=== PATIENT | female | born 1940 | race Caucasian/White ===

== ENCOUNTER 2018-01-30 15:35 | Emergency (ER) | payer MEDICARE, OTHER, SELFPAY ==
[2018-01-30 15:36] VITALS: BP 184/97; PULSE 86; RESP 15; TEMP 36.8; O2SAT 99; BMI 29.1
--- NOTE | 2018-01-30 15:55 | ED.VISSUMM ---
- ER Visit Summary Date of Service: 01/30/18 Chief Complaint: Back pain History of Present Illness: The patient is a 77 F who presents with left thoracic back pain that has been getting worse over the past 2 days. Patient describes the pain as sharp. Patient states the pain is worse when she lays flat. Patient denies any trauma or injury. Patient denies any radiation of the pain. Patient denies any paresthesias or weakness. Patient was seen at an urgent care prior to arrival here. Patient had a urinalysis done there which was normal. Patient was referred here because they were unable to do x-rays at the urgent care. Physical Examination: Vital signs are stable except for an elevated blood pressure of 184/97. Patient is in no acute distress. Patient is afebrile. Oral mucosa is pink and moist. Neck is supple. Trachea is midline. There is no JVD noted. Heart was regular rate and rhythm. Lungs are clear and equal bilaterally. There is good respiratory effort noted. Radial pulses are equal bilaterally. Abdomen is soft. Bowel sounds are normal. There is no tenderness. Cranial nerves II through XII are intact. There are no focal motor or sensory deficits noted. The remaining physical exam is within normal limits. Test Results: X-rays of the left ribs and chest were obtained. There is no acute process noted. Emergency Department Course and Treatment: She was given a dose of Naprosyn here. Patient felt better on reevaluation. Patient's blood pressure has improved. Patient was instructed to take Aleve or ibuprofen as needed for pain. Patient was instructed to follow-up with her primary care physician in 7-10 days. Patient understood and was agreeable with the plan. All questions were answered. Disposition: Discharged home Impression: Thoracic strain This note was generated with [employer] dictation software. It may contain incorrect words, spelling, and punctuation that were not noted in review of the chart prior to signing ED Disposition - Plan for ED Patient: Disposition: Home or Assisted Living Chief Complaint: Back Diagnosis: Thoracic myofascial strain Instructions: ED Strain Chest Wall Referrals: Gurjit Burgos MD [NON-STAFF] -
[2018-01-30] MEDS: Naproxen 500 MG Tablet PO (16:03)
--- NOTE | 2018-01-30 16:05 | RAD_ITS ---
STUDY: X-RAY - UNILATERAL RIBS ( LEFT ) WITH CHEST REASON FOR EXAM: Female, 77 years old. LEFT POSTERIOR PAIN, NO INJURY TECHNIQUE - RIBS: 3 view(s) of the ribs. TECHNIQUE - CHEST: Single AP portable view of the chest. COMPARISON: None. FINDINGS - RIBS: Normal visualized ribs without a demonstrated fracture. FINDINGS - CHEST: Calcified nodule of the upper lobes. There is no demonstrated pleural abnormality. Normal size heart. Normal mediastinum and gretchen. Normal visualized pulmonary arteries. Normal visualized aortic arch and descending thoracic aorta. Normal visualized thoracic spine. Normal visualized ribs, clavicles, and shoulders. There is no demonstrated abnormality of the visualized soft tissue structures of the upper abdomen. RAD/Ribs Uni Min 3V w/PA Chest IMPRESSION: RIBS: Normal x-ray examination of the ribs. CHEST: Normal x-ray examination of the chest. Electronically Signed: Mario Wan MD at 16:46 EDT , Service support ,
== END 2018-01-30 17:39 | disposition home or self-care (01) ==
PROVIDERS: Emergency Provider Emergency Medicine; Family Provider Family Medicine; PCP Family Medicine
DX: S29.012A Strain of muscle and tendon of back wall of thorax, initial encounter (principal); X58.XXXA Exposure to other specified factors, initial encounter; Y93.9 Activity, unspecified; Y92.89 Other specified places as the place of occurrence of the external cause; Y99.9 Unspecified external cause status; I10 Essential (primary) hypertension; H40.9 Unspecified glaucoma
CPT/HCPCS: 71101; 99282

== ENCOUNTER 2020-10-07 09:14 | Emergency (ER) | payer MEDICARE, OTHER, SELFPAY ==
[2020-10-07 09:16] VITALS: BP 128/73; PULSE 82; RESP 16; TEMP 36.3; O2SAT 95; BMI 25.0
--- NOTE | 2020-10-07 09:25 | CT_ITS ---
STUDY: CT ABDOMEN AND PELVIS WITH CONTRAST REASON FOR EXAM: Female, 79 years old. ABDOMINAL PAIN RADIATION DOSAGE (If Supplied By Facility): CTDIvol = ( 14.09 ) mGy, DLP = ( 845.01 ) mGycm TECHNIQUE: Transaxial images were obtained from the dome of the diaphragm to the symphysis pubis without oral contrast. IV 100mL [id number]-300 was administered. Sagittal and coronal images were reconstructed. Individualized dose optimization techniques were used for this CT. COMPARISON: None. FINDINGS: The visualized lung bases are unremarkable. The visualized portions of the heart are within normal limits. Right hepatic dome hypodense lesion is too small to characterize. Normal gallbladder and extrahepatic biliary system. Normal spleen. Normal pancreas. Normal bilateral adrenal glands. There is a right extrarenal pelvis and 4 mm nonobstructing stone in the lower pole. Left renal upper pole 2 x 1.8 cm hyperdense lesion, this may represent hemorrhagic or proteinaceous cyst. Left renal midpole simple cyst. Normal visualized stomach. There is mild distal small bowel wall thickening and mucosal hyperemia. The descending and sigmoid colon with marked diverticulosis without evidence of acute diverticulitis. There is mild colonic wall thickening of the ascending and transverse colon. No bowel obstruction. The appendix is visualized and appears normal. Moderate aortobiiliac atherosclerotic disease. Normal inferior vena cava. Normal retroperitoneum. Normal urinary bladder. Normal abdominal wall. Grade 1 anterolisthesis of L4 on L5. T10 and L3 vertebral body hemangioma. CT/Abdomen/Pelvis W IV Cont ONLY IMPRESSION: There is mild distal small bowel wall thickening and mucosal hyperemia, mild wall thickening of the ascending and transverse colon-findings are in keeping with enterocolitis if clinically consistent. No obstruction. Left renal upper pole 2 x 1.8 cm hyperdense lesion, this may represent hemorrhagic or proteinaceous cyst. No follow-up necessary. Electronically Signed: Shy Denise MD at 11:40 EDT Tel , Service support ,
--- NOTE | 2020-10-07 09:26 | EDS_ITS ---
HPI History of Present Illness Chief Complaint: Abd Pain Informant: patient Narrative Narrative: 79-year-old female states that last Wednesday she was at the car [place] and was hit by a door and fell to the floor. She got up and felt she was okay. However when she got home that night she had diarrhea which persisted into Wednesday. Since Wednesday she has had anorexia and lower abdominal pain. She describes it as a constant pain. She denies any urinary symptoms. She said very small bowel movements. No fevers. No radiation of the pain to the back. No lightheadedness. She has been able to drink fluids. She states that she has had increased belching. She called her doctor's office and they prescribed her Prilosec. No back pain. No chest pain. [facility] Medical History (Updated 10/07/20 @ 12:[address] Almas Polanco DO) Glaucoma Hypertension Home Medications aspirin 81 mg PO DAILY 01/30/18 [History Last Taken Unknown] amoxicillin-pot clavulanate 875 mg PO Q12H #20 tablet 10/07/20 [Rx Last Taken Unknown] losartan-hydrochlorothiazide 1 tab PO DAILY 10/07/20 [History Last Taken Unknown] lutein 20 mg PO DAILY 10/07/20 [History Last Taken Unknown] omeprazole 20 mg PO DAILY 10/07/20 [History Last Taken Unknown] ondansetron 4 mg PO Q8H PRN PRN #15 tab 10/07/20 [Rx Last Taken Unknown] Allergy/AdvReac Type Severity Reaction Status Date / Time No Known Allergies Allergy Verified 10/07/20 09:17 no surgical history Social History (Updated 10/07/20 @ 09:[address] Almas Polanco DO) Smoking Status: Never smoker substance use type: does not use ROS ROS ED Constitutional Constitutional ED: Denies chills or weight loss Eyes Eyes: Denies change in vision or diplopia ENT ENT ED: Denies ear pain, rhinorrhea or sore throat Cardiovascular Cardiovascular: Denies chest pain, orthopnea, palpitations or racing heartbeat Respiratory/Chest Respiratory/Chest: Denies cough, dyspnea or orthopnea Gastrointestinal Gastrointestinal: Reports abdominal pain, diarrhea and nausea; Denies vomiting Genitourinary Genitourinary ED: Denies dysuria, hematuria or urinary frequency Musculoskeletal Musculoskeletal: Denies arthralgias or myalgias Integumentary Denies abscess or rash Neurologic Neurologic: Denies headache(s) or weakness Psychiatric Psychiatric: Denies anxiety, depression, suicidal ideation or suicidal thoughts Endocrine Endocrinology: Denies polydipsia, polyphagia or polyuria Allergic/Immunologic Allergic/Immunologic ED: Denies mouth swelling, tongue swelling or urticaria EXAM Physical Exam Const Vital Signs: 10/07/20 09:16 Temperature 97.3 F L Temperature Source Temporal Pulse Rate 82 Respiratory Rate 16 Blood Pressure 128/73 H Blood Pressure Mean 91 Pulse Ox 95 Oxygen Delivery Method Room Air Positive well nourished and well developed General Appearance ED: well developed HEENT Reports normocephalic, head/scalp atraumatic and moist mucous membranes Eyes PERRL and EOMs intact bilaterally Neck no lymphadenopathy, supple and no JVD Resp normal respiratory effort and clear to auscultation bilaterally Cardio regular rate, regular rhythm and no murmurs GI non-tender GI Narrative: Patient reports diffuse tenderness to palpation. Auscultation: normoactive bowel sounds Palpation: soft and tender Back/Spine no CVA tenderness and normal ROM Extremity normal to inspection General Extremety ED: Negative for edema General Extremity: Negative for edema Neuro oriented x3 and CN's II-XII intact bilaterally Sensorium / Orientation: alert Motor Exam: strength 5/5 throughout Psych mental status grossly normal Mood & Affect: Negative for depressed or tearful Skin no rashes or lesions noted and no wounds MDM MDM MDM Narrative Medical decision making narrative: Patient's white count is nonspecifically elevated at 12.9. CMP shows a creatinine 1.45 with a glucose of 111. Urinalysis is negative. CT of the abdomen pelvis was obtained. This demonstrated some small bowel wall thickening and mucosal hyperemia. There is also some mild wall thickening of the ascending and transverse colon. This could represent enterocolitis the patient's diarrhea stopped 5 days ago. She has got extensive diverticulosis. I do wonder if this is more of a colitis that we should treat with some antibiotics. We will write for her to have Augmentin and Zofran. I requested she follow-up with primary care if not improving return if worsening. Lab Data Attestation: I reviewed the patient's lab results. Labs: Laboratory Results - last 24 hr 10/07/20 10/07/20 10/07/20 09:39 09:39 10:11 WBC 12.9 H RBC 3.91 L Hgb 11.8 L Hct 35.7 L MCV 91.3 MCH 30.2 MCHC 33.1 RDW Std Deviation 42.8 RDW Coeff of Aracely 12.8 Plt Count 367 MPV 8.7 Immature Gran % (Auto) 2.200 H Neut % (Auto) 70.8 H Lymph % (Auto) 13.6 L [place] % (Auto) 12.2 H Eos % (Auto) 0.7 Baso % (Auto) 0.5 Absolute Neuts (auto) 9.1 H Absolute Lymphs (auto) 1.76 Nucleated RBC % 0 Differential Comment Platelet Estimate ADEQUATE RBC Morphology NORM C+C Sodium 136 Potassium 3.7 Chloride 100 Carbon Dioxide 26.0 Anion Gap 10 BUN 23 H Creatinine 1.45 H Estim Creat Clear Calc 24.07 Est GFR (MDRD) Af Amer 45 L Est GFR (MDRD) Non-Af 37 L BUN/Creatinine Ratio 15.9 Glucose 111 H Calcium 8.9 Total Bilirubin 0.80 AST 18 ALT 18 Alkaline Phosphatase 109 Total Protein 7.3 Albumin 3.1 L Globulin 4.2 Albumin/Globulin Ratio 0.7 L Lipase 422 H Urine Color Yellow Urine Clarity Sl. Cloudy Urine pH 6.0 Ur Specific Tillson 1.010 Urine Protein Negative Urine Glucose (UA) Normal Urine Ketones 5 H Urine Occult Blood Negative Urine Nitrite Negative Urine Bilirubin Negative Urine Urobilinogen Normal Ur Leukocyte Esterase 25 H Urine RBC 0 SEEN Urine WBC 0-5 SEEN Ur Squamous Epith Cells 0-5 SEEN Urine Bacteria 0 SEEN Urine Mucus 0 SEEN Radiography Diagnostic Testing: Radiology Impression Abdomen/Pelvis CT 10/07/20 09:25 IMPRESSION: There is mild distal small bowel wall thickening and mucosal hyperemia, mild wall thickening of the ascending and transverse colon-findings are in keeping with enterocolitis if clinically consistent. No obstruction. Left renal upper pole 2 x 1.8 cm hyperdense lesion, this may represent hemorrhagic or proteinaceous cyst. No follow-up necessary. Electronically Signed: Shy Denise MD at 11:40 EDT Tel , Service support , Discharge Plan Triage Chief Complaint: Abd Pain ED Provider: Almas Polanco Dx/Rx/DC Orders Clinical Impression: Acute abdominal pain, Colitis Prescriptions: New ondansetron [ondansetron] 4 MG tablet 4 mg PO Q8H PRN PRN (Reason: Nausea) Qty: 15 RF: 0 amoxicillin-pot clavulanate [amoxicillin-pot clavulanate] 875 MG tablet 875 mg PO Q12H Qty: 20 RF: 0 No Action aspirin 81 MG tablet,delayed release (DR/EC) 81 mg PO DAILY RF: 0 lutein 20 mg Capsule 20 mg PO DAILY RF: 0 losartan-hydrochlorothiazide 100-12.5 mg Tablet 1 tab PO DAILY RF: 0 omeprazole 20 mg Capsule,Delayed Release(Dr/Ec) 20 mg PO DAILY RF: 0 Primary Care Provider: Je Jorge Referrals: Je Jorge MD [Primary Care Provider] - 1 Week Disposition Disposition: Home, self care
[2020-10-07 09:48] LABS: Absolute Lymphocyte Count 1.76 X10^3/uL (0.83-4.51); Absolute Neutrophil Count 9.1 X10^3/uL (2.0-7.7); Basophil# 0.06 X10^3/uL; Basophil% 0.5 % (0-1); Eosinophil# 0.09 X10^3/uL; Eosinophils% 0.7 % (0-5); Hematocrit 35.7 % (37-47); Hemoglobin 11.8 g/dL (12.0-15.0); Lymphocyte # 1.76 X10^3/ul (0.83-4.51); Lymphocyte % 13.6 % (19-41); Mean Corp Hgb Conc 33.1 g/dL (32-36); Mean Corpuscular Hgb 30.2 pg (27.0-32.0); Mean Corpuscular Volume 91.3 fL (81-99); Mean Platelet Vol. 8.7 fl (6.2-12.0); Monocyte# 1.58 X10^3/uL; Monocyte% 12.2 % (0-10); NRBC Flagged by Analyzer 0 % (0-5); Neutrophil # 9.13 X10^3/uL (2.7-7.7); Neutrophil % 70.8 % (47-70); POSITIVE DIFFERENTIAL YES; POSITIVE MORPHOLOGY YES; Platelet Count 367 K/mm3 (150-450); RBC Distribution Width CV 12.8 % (11.6-14.6); RBC Distribution Width SD 42.8 fl (35.1-43.9); Red Blood Count 3.91 M/mm3 (4.2-5.4); White Blood Count 12.9 K/mm3 (4.4-11.0)
[2020-10-07] MEDS: Morphine 2 MG/ML Syringe IV (09:48)
[2020-10-07 09:49] LABS: Differential Indicated SCAN CRITERIA MET
[2020-10-07] MEDS: Ondansetron 4 MG/2 ML Vial IV (09:49)
[2020-10-07 10:14] LABS: ALB/GLOB Ratio 0.7 RATIO (0.9-2.4); AST(SGOT) 18 U/L (15-37); Alanine Aminotransfer ALT/SGPT 18 U/L (13-56); Albumin, Serum 3.1 g/dL (3.2-5.0); Alkaline Phosphatase 109 U/L (45-117); Anion Gap 10 (5-15); BUN 23 mg/dL (7-18); BUN/Creat Ratio 15.9 RATIO (10-20); Calcium,Total 8.9 mg/dL (8.5-10.1); Chloride 100 mmol/L (98-107); Creatinine, Serum 1.45 mg/dL (0.55-1.02); EST Glomerular Filtration Rate 37 mL/min (>60); Est Glom Filt Rate - Afr Amer 45 mL/min (>60); Estimated Creatinine Clearance 24.07 ml/min; Globulin 4.2 g/dL (2.2-4.2); Glucose 111 mg/dL (74-106); Lipase 422 U/L (73-393); Potassium 3.7 mmol/L (3.5-5.1); Protein, Total 7.3 g/dL (6.4-8.2); Sodium Level 136 mmol/L (136-145)
[2020-10-07 10:16] LABS: Bacteria 0 SEEN /hpf (None Seen); Mucous, Urine 0 SEEN /hpf (<or=2+); Red Blood Cells-Urine 0 SEEN /hpf (0-5)
[2020-10-07 10:21] LABS: Color, Urine Yellow (Yellow); Glucose, Dipstick Normal (Normal); Ketone-Dipstick 5 mg/dl (Negative); Leukocyte Esterase-Dipstick 25 /ul (Negative); Nitrite-Dipstick Negative (Negative); Occult Blood-Urine Negative /ul (Negative); Protein-Dipstick Negative (Negative); Urine Bilirubin Dipstick Negative (Negative); Urine Clarity Sl. Cloudy (Clear); Urine Urobilinogen Normal (Normal)
[2020-10-07 10:31] LABS: Squamous Epithelial Cells - UA 0-5 SEEN /hpf (5-10); White Blood Cells 0-5 SEEN /hpf (0-5)
[2020-10-07] MEDS: 0.9% Normal Saline 1,000 ML 125 ML IV (10:31)
[2020-10-07 11:10] LABS: Platelet Estimate ADEQUATE (ADEQ); Red Cell Morphology NORM C+C NORMAL (NORM C&C)
[2020-10-07 12:13] VITALS: BP 128/73; PULSE 86; RESP 16; O2SAT 96
[2020-10-08 11:54] LABS: Pathologist Review Reviewed
== END 2020-10-07 12:16 | disposition home or self-care (01) ==
PROVIDERS: Emergency Provider Emergency Medicine; PCP Family Medicine
DX: K52.9 Noninfective gastroenteritis and colitis, unspecified (principal); I10 Essential (primary) hypertension; H40.9 Unspecified glaucoma; Z79.82 Long term (current) use of aspirin; Z79.899 Other long term (current) drug therapy
CPT/HCPCS: 74177; 80053; 81001; 83690; 85025; 96361; 96374; 96375; 99283; J7030; Q9967; A4216; J2405

== ENCOUNTER 2022-07-24 11:00 | Emergency (ER) | payer MEDICARE, OTHER, SELFPAY ==
[2022-07-24 11:01] VITALS: BP 165/96; PULSE 95; RESP 18; TEMP 36.6; O2SAT 100; BMI 25.4
--- NOTE | 2022-07-24 11:22 | EX.ED.DYSGE1 ---
HPI History of Present Illness Chief Complaint: Dizziness Detail of Chief Complaint: Dizziness x1 week Informant: patient Narrative Narrative: Patient presents to the emergency department with complaint of dizziness that started about a week ago. Patient states that then it resolved for several days but started back up yesterday. Worse with certain positions of turning her head. She denies nausea or vomiting. She denies headache. She denies fall or head injury. She denies recent illness. Patient was told she had wax in her ears and she scheduled to follow-up with ENT. Patient does wear bilateral hearing aids. She denies chest pain or shortness of breath. Patient has not had dizzy episodes like this before. [facility] Medical History (Updated 07/24/22 @ 12:[address] Francy Pacheco DO) Glaucoma Hypertension Home Medications aspirin 81 mg tablet,delayed release 81 mg PO DAILY 01/30/18 [History Last Taken Unknown] amoxicillin 875 mg-potassium clavulanate 125 mg tablet 875 mg PO Q12H #20 TABLETS 10/07/20 [Rx Last Taken Unknown] losartan 100 mg-hydrochlorothiazide 12.5 mg tablet 1 tab PO DAILY 10/07/20 [History Last Taken Unknown] lutein 20 mg capsule 20 mg PO DAILY 10/07/20 [History Last Taken Unknown] omeprazole 20 mg capsule,delayed release 20 mg PO DAILY 10/07/20 [History Last Taken Unknown] ondansetron 4 mg disintegrating tablet 4 mg PO Q8H PRN PRN Nausea #15 tabs 10/07/20 [Rx Last Taken Unknown] meclizine 25 mg chewable tablet (Bonine) 25 mg PO TID PRN dizziness #20 tabs 07/24/22 [Rx Last Taken Unknown] Allergy/AdvReac Type Severity Reaction Status Date / Time No Known Allergies Allergy Verified 07/24/22 11:02 Social History (Updated 10/07/20 @ 09:[address] Almas Polanco DO) Smoking Status: Never smoker substance use type: does not use ROS ROS ED Review of Systems ROS Unobtainable: other Constitutional Constitutional ED: Reports lethargy; Denies chills, fever(s), sweats or weight loss Eyes Eyes: Denies blurry vision, change in vision or diplopia ENT ENT ED: Denies rhinorrhea or sore throat Cardiovascular Cardiovascular: Reports chest pain and racing heartbeat; Denies orthopnea Respiratory/Chest Respiratory/Chest: Reports dyspnea and dyspnea on exertion; Denies cough, orthopnea or sputum Gastrointestinal Gastrointestinal: Denies abdominal pain, diarrhea, nausea or vomiting Genitourinary Genitourinary ED: Denies dysuria, hematuria or urinary frequency Musculoskeletal Musculoskeletal: Denies arthralgias, back pain, myalgias or neck pain Integumentary Denies abscess, Abrasions or rash Neurologic Neurologic: Reports other Details: Dizziness ; Denies headache(s) or weakness Psychiatric Psychiatric: Denies anxiety, depression or suicidal thoughts Endocrine Endocrinology: Denies polydipsia, polyphagia or polyuria Hematologic/Lymphatic Hematologic/Lymphatic: Denies easy bleeding, easy bruising or lymphadenopathy Allergic/Immunologic Allergic/Immunologic ED: Denies mouth swelling, tongue swelling or urticaria EXAM Physical Exam Const Vital Signs: 07/24/22 11:01 07/24/22 11:09 Temperature 98 F Temperature Source Temporal Pulse Rate 95 Respiratory Rate 18 Respiratory Effort Normal Non-Labored Respiratory Pattern Normal Blood Pressure 165/96 H Blood Pressure Mean 119 Pulse Ox 100 Oxygen Delivery Method Room Air Positive well nourished and well developed General Appearance ED: well developed and NAD HEENT Reports TM's clear and moist mucous membranes normocephalic and atraumatic; Negative for trauma or tenderness Tympanic Membrane ED: Yes TM's clear Eyes PERRL and EOMs intact bilaterally General Eye ED: Negative for pale conjunctiva or scleral icterus Neck no lymphadenopathy, supple and no JVD General: Negative for tenderness Chest Wall inspection of chest normal and palpation of chest normal Chest: Negative for tenderness Resp normal respiratory effort and clear to auscultation bilaterally Effort and Inspection: Negative for respiratory distress or pain with movement Auscultation: Negative for rhonchi, wheezes or diminished lung sounds Cardio regular rate, regular rhythm, S1 normal heart sound, S2 normal heart sound and no murmurs Peripheral Pulses: pulses 2+ throughout GI normal to inspection, nondistended, normoactive bowel sounds, soft to palpation, non-tender, non-distended and no masses Back/Spine no CVA tenderness and no thoracic nor lumbar tenderness Extremity normal to inspection General Extremety ED: Negative for edema General Extremity: Negative for edema Neuro oriented x3, CN's II-XII intact bilaterally, no sensory deficits noted and gait normal Neuro Narrative: Finger-nose and heel donnelly testing within normal limits, negative Romberg, negative for drift, fundi benign. I did perform the Hallpike maneuver on the patient and she was positive with her head turned to the right she had fatigable nystagmus. No nystagmus noted with a head turn to the left. Clinically I think she has peripheral vertigo. We discussed doing the Alan maneuver versus using medication to treat such as Antivert. Patient was told that if we did the Alan maneuver she could lay flat for a few days and she would prefer to just use the medications to try to treat. Sensorium / Orientation: awake, alert, oriented to person, oriented to place and oriented to time Motor Exam: strength 5/5 throughout and strength abnormal Psych mental status grossly normal Skin no rashes or lesions noted and no wounds MDM MDM MDM Narrative Medical decision making narrative: Patient with peripheral vertigo. Will treat with Antivert. Patient felt markedly improved after Antivert. Clinically I suspect benign positional vertigo. She has an appointment with ENT in 3 days she is to keep that. I will write her a prescription for Antivert. Discharged home stable condition. Discharge Plan Triage Chief Complaint: Dizziness ED Provider: Francy Pacheco Dx/Rx/DC Orders Clinical Impression: Benign paroxysmal positional vertigo Instructions: BPPV Prescriptions: New meclizine [Bonine] 25 mg tablet,chewable 25 mg PO TID PRN (Reason: dizziness) Qty: 20 0RF No Action aspirin 81 MG tablet,delayed release (DR/EC) 81 mg PO DAILY lutein 20 mg Capsule 20 mg PO DAILY losartan-hydrochlorothiazide 100-12.5 mg Tablet 1 tab PO DAILY omeprazole 20 mg Capsule,Delayed Release(Dr/Ec) 20 mg PO DAILY ondansetron [ondansetron] 4 MG tablet 4 mg PO Q8H PRN PRN (Reason: Nausea) Qty: 15 0RF amoxicillin-pot clavulanate [amoxicillin-pot clavulanate] 875 MG tablet 875 mg PO Q12H Qty: 20 0RF Primary Care Provider: Je Jorge Referrals: Je Jorge MD [Primary Care Provider] - 3-5 Days Activity Restrictions/Additional Instructions: Keep appointment with ear nose and throat physician and discuss further if symptoms persist. Disposition Disposition: Home, Self Care
[2022-07-24] MEDS: Meclizine HCl 25 MG Tablet PO (11:28)
[2022-07-24 12:46] VITALS: BP 144/89; PULSE 83; RESP 17; O2SAT 98
== END 2022-07-24 12:47 | disposition home or self-care (01) ==
PROVIDERS: Emergency Provider Emergency Medicine; PCP Family Medicine; Visit Provider Emergency Medicine
DX: R42 Dizziness and giddiness (principal); I10 Essential (primary) hypertension
CPT/HCPCS: 99283

== ENCOUNTER 2024-02-12 08:55 | Emergency (ER) | payer MEDICARE, OTHER, SELFPAY ==
[2024-02-12 08:56] VITALS: BP 181/115; PULSE 78; RESP 18; TEMP 36.6; O2SAT 100; BMI 24.2
--- NOTE | 2024-02-12 09:18 | CT_ITS ---
STUDY: CT ABDOMEN AND PELVIS WITHOUT CONTRAST REASON FOR EXAM: Female, 83 years old. Pain RADIATION DOSAGE (If Supplied By Facility): CTDIvol = ( 6.25 ) mGy, DLP = ( 392.39 ) mGycm TECHNIQUE: Transaxial images were obtained from the dome of the diaphragm to the symphysis pubis without oral contrast, and without intravenous contrast. Sagittal and coronal images were reconstructed. Individualized dose optimization techniques were used for this CT. COMPARISON: October 07, 2020 FINDINGS: There is lower lung scarring or atelectasis. The visualized portions of the heart are within normal limits. Normal liver. Normal gallbladder and extrahepatic biliary system. Normal spleen. Normal pancreas. Normal bilateral adrenal glands. There is stable 0.7 cm stone in the right kidney. There is stable mild hydronephrosis. There is 1.1 cm hyperdense cyst of the upper pole the right kidney. There is 2.3 cm cyst and 1.2 cm hyperdense cyst of the left kidney. Normal visualized stomach. Normal small intestine. There are multiple colonic diverticula consistent with diverticulosis. The appendix is visualized and appears normal. There is atherosclerotic calcification of the abdominal aorta, without a demonstrated aneurysm. Normal inferior vena cava. Normal retroperitoneum. Normal urinary bladder. There is atrophy of the uterus. There is no free fluid in the abdomen or pelvis. Normal abdominal wall. There is degenerative change of the spine. CT/Abdomen/Pelvis without Cont IMPRESSION: Colonic diverticulosis. No obstruction. Stable right renal stone and right hydronephrosis. Electronically Signed: Ronald Van MD at 11:05 EDT ,
--- NOTE | 2024-02-12 09:19 | EDS_ITS ---
HPI HPI - GI History of Present Illness Chief Complaint: Flank Pain Detail of Chief Complaint: Atraumatic right flank pain since last evening. Informant: patient Abdominal Pain/Flank Pain Onset: Yesterday Context: Gradual Onset Timing: Continuous Location: Right Flank Current Severity: Mild Maximum Severity: Mild Worsened by: Nothing Relieved by: Nothing Nausea/Vomiting/Emesis GI Symptom: Negative for Nausea or Vomiting Diarrhea/Melena/Hematochezia GI Symptom: Negative for Diarrhea, Melena or Hematochezia Associated Symptoms Associated Symptoms: Negative for Dysuria, Frequency, Hematuria or Urgency Narrative Narrative: 83-year-old female history of glaucoma and hypertension. Complaining of right flank pain since last evening. Denies any fall injury or trauma. Denies any hematuria or dysuria. No history of kidney stone. Said it just started hurting. Nothing particularly makes it better or worse. Denies any abdominal pain or other symptoms. Prior similar symptoms: No Recent Illness/Hospitalization: No PFSH PFSH Medical History Glaucoma Hypertension Home Medications ?Medication ?Instructions ?Recorded ?Last Taken ?Type aspirin 81 mg tablet,delayed 81 mg PO DAILY 01/30/18 Unknown History release amoxicillin 875 mg-potassium 875 mg PO Q12H #20 TABLETS 10/07/20 Unknown Rx clavulanate 125 mg tablet losartan 100 1 tab PO DAILY 10/07/20 Unknown History mg-hydrochlorothiazide 12.5 mg tablet lutein 20 mg capsule 20 mg PO DAILY 10/07/20 Unknown History omeprazole 20 mg capsule,delayed 20 mg PO DAILY 10/07/20 Unknown History release ondansetron 4 mg disintegrating 4 mg PO Q8H PRN PRN Nausea #15 tabs 10/07/20 Unknown Rx tablet meclizine 25 mg chewable tablet 25 mg PO TID PRN dizziness #20 tabs 07/24/22 Unknown Rx (Bonine) tramadol 50 mg tablet 50 mg PO Q6H PRN pain #14 tabs 02/12/24 Unknown Rx tramadol 50 mg tablet 50 mg PO Q6H PRN pain #14 tabs 02/12/24 Unknown Rx Allergy/AdvReac Type Severity Reaction Status Date / Time No Known Allergies Allergy Verified 02/12/24 08:56 Social History Smoking Status: Never smoker substance use type: does not use ROS ROS ED ROS Narrative Atraumatic right flank pain. Constitutional Constitutional ED: Denies chills or fever(s) ENT ENT ED: Denies ear pain Cardiovascular Cardiovascular: Denies chest pain Respiratory/Chest Respiratory/Chest: Denies cough Gastrointestinal Gastrointestinal: Denies abdominal pain Genitourinary Genitourinary ED: Denies dysuria or hematuria Musculoskeletal Musculoskeletal: Reports back pain; Denies arthralgias Integumentary Denies abscess Neurologic Neurologic: Denies headache(s) Psychiatric Psychiatric: Denies anxiety Endocrine Endocrinology: Denies polydipsia Hematologic/Lymphatic Hematologic/Lymphatic: Denies easy bleeding Allergic/Immunologic Allergic/Immunologic ED: Denies mouth swelling EXAM Physical Exam Narrative Exam Narrative: Well-appearing 83-year-old female. Vital signs are stable afebrile. Initial blood pressure is elevated. No acute distress. H EENT exam unremarkable. Pupils round reactive light. Neck nontender. Lungs clear. Heart regular rhythm rate about 80 no murmur. Chest wall and ribs nontender. Abdomen soft nontender. No peritoneal signs. No pulsatile mass. Moving all 4 extremities. Nontender no edema. Normal strength. Back her pain is at her right CVA region. There is no discoloration or rash. There is no signs of trauma or bruising. There is no reproducible pain. Palpation at that area does not change the pain make it any better or worse. Neurologically she is awake and alert with no focal motor deficits. Const Vital Signs: 02/12/24 08:56 02/12/24 11:35 Temperature 97.9 F 97.2 F L Temperature Source Oral Oral Pulse Rate 78 81 Respiratory Rate 18 16 Blood Pressure 181/115 H 127/88 H Blood Pressure Mean 137 101 Pulse Ox 100 97 Oxygen Delivery Method Room Air Positive well nourished and well developed; Negative for obese, cachectic, contractures or unkempt General Appearance ED: well developed and NAD; Negative for unkempt, cachectic, contractures or pallor Nutritional Appearance: Negative for cachectic or obese HEENT Reports moist mucous membranes normocephalic and atraumatic; Negative for trauma or tenderness Eyes PERRL and EOMs intact bilaterally General Eye ED: Negative for pale conjunctiva or scleral icterus Neck no lymphadenopathy, supple and no JVD General: Negative for tenderness Lymph Lymphatic: Negative for other Resp normal respiratory effort and clear to auscultation bilaterally Auscultation: Negative for rales, rhonchi or wheezes Cardio regular rate, regular rhythm, S1 normal heart sound, S2 normal heart sound and no murmurs GI non-tender, non-distended and no masses Inspection: Negative for abdominal distention Auscultation: normoactive bowel sounds Palpation: soft; Negative for tender, guarding, hernia, mass, pulsatile mass or rebound tenderness present Back/Spine no CVA tenderness General Back: Negative for CVA tenderness Cervical Spine: Negative for cervical spine tenderness Thoracic Spine / Upper Back: Negative for thoracic spinal tenderness Lumbar Spine / Lower Back: Negative for lumbar spinal tenderness Coccyx: Negative for other Extremity Negative for full ROM General Extremety ED: Negative for edema or tenderness General Extremity: Negative for edema Neuro CN's II-XII intact bilaterally and moves all extremities Sensorium / Orientation: alert, oriented to person, oriented to place and oriented to time; Negative for orientation impaired Motor Exam: strength 5/5 throughout Psych mental status grossly normal and thought process normal Appearance: Negative for unkempt Attitude: No agitated Mood & Affect: Negative for depressed, anxious or tearful Skin no wounds General Skin Exam: Negative for jaundice or pallor Lesions: no lesions Rashes: no rashes Trauma: Negative for abrasion Nails: Negative for discolored MDM MDM MDM Narrative Medical decision making narrative: 83-year-old female with atraumatic right flank pain. No reproducible pain does not seem to be musculoskeletal could be a kidney stone. She is not having urinary symptoms with urinary tract infection is a possibility. CAT scan labs are pending. She did not want or need anything for pain. Repeat exam unchanged. Patient doing well at 1:10 PM. Explained him that we were waiting for the CAT scan read and also I did speak to the radiologist about the CAT scan findings. This appears to be secondary to dilatation of her right kidney or hydronephrosis. The question is why. There may be a stricture. I do not see an acute stone. She be given Ultram for pain and discharged to follow- up with urology. They are comfortable with the plan. History & Record Review Discussion w/independent historian: Patient and Family Additional record(s) reviewed:: Prior inpatient record, Prior outpatient record, Prior ED visit and Prior labs Lab Data Attestation: I reviewed the patient's lab results. Lab results narrative: CBC shows a white count of 9. H&H 12 and 36. Platelets 347. Electrolytes show sodium 133. Gap 4. BUN and creatinine of 27 1.28. Glucose 115. These are consistent with prior labs of hers. UA negative. No nitrates. No white or red cells. 1+ bacteria. CAT scan shows a right renal stone in the kidney. Dilated renal pelvis and proximal ureter felt to be secondary to a stricture. No stone seen causing this. I discussed this with the radiologist. He stated that he saw this on a prior CAT scan from several years ago also. This is probably chronic. Labs: Laboratory Results - last 24 hr 02/12/24 02/12/24 09:20 10:15 WBC 9.8 RBC 3.93 L Hgb 12.1 Hct 36.6 L MCV 93.1 MCH 30.8 MCHC 33.1 RDW Std Deviation 41.9 RDW Coeff of Aracely 12.1 Plt Count 347 MPV 9.4 Immature Gran % (Auto) 0.300 Neut % (Auto) 75.7 H Lymph % (Auto) 9.9 L [place] % (Auto) 10.8 H Eos % (Auto) 2.7 Baso % (Auto) 0.6 Absolute Neuts (auto) 7.4 Absolute Lymphs (auto) 0.97 Nucleated RBC % 0 Sodium 133 L Potassium 4.3 Chloride 102 Carbon Dioxide 27.0 Anion Gap 4 L BUN 27 H Creatinine 1.28 H Estim Creat Clear Calc 25.41 Est GFR (MDRD) Af Amer 51 L Est GFR (MDRD) Non-Af 42 L BUN/Creatinine Ratio 21.1 H Glucose 115 H Calcium 9.6 Urine Color Yellow Urine Clarity Clear Urine pH 6.5 Ur Specific [place] 1.010 Urine Protein Negative Urine Glucose (UA) Normal Urine Ketones Negative Urine Occult Blood Negative Urine Nitrite Negative Urine Bilirubin Negative Urine Urobilinogen Normal Ur Leukocyte Esterase Negative Urine RBC 0 SEEN Urine WBC 0-5 SEEN Ur Squamous Epith Cells 0-5 SEEN Urine Bacteria 1+ Urine Mucus 0 SEEN Radiography Diagnostic Testing: Clinical Impression(s) from Imaging Studies Abdomen/Pelvis CT 02/12/24 09:18 IMPRESSION: Colonic diverticulosis. No obstruction. Stable right renal stone and right hydronephrosis. Electronically Signed: Ronald Van MD at 11:05 EDT , ADDENDUM: 02/12/24 1202 IMPRESSION: undefined Discharge Plan Triage Chief Complaint: Flank Pain ED Provider: Ricky Fatima Dx/Rx/DC Orders Clinical Impression: Acute right flank pain, Hydronephrosis Prescriptions: New tramadol 50 mg tablet 50 mg PO Q6H PRN (Reason: pain) Qty: 14 0RF tramadol 50 mg tablet 50 mg PO Q6H PRN (Reason: pain) Qty: 14 0RF No Action aspirin 81 MG tablet,delayed release (DR/EC) 81 mg PO DAILY lutein 20 mg Capsule 20 mg PO DAILY losartan-hydrochlorothiazide 100-12.5 mg Tablet 1 tab PO DAILY omeprazole 20 mg Capsule,Delayed Release(Dr/Ec) 20 mg PO DAILY ondansetron [ondansetron] 4 MG tablet 4 mg PO Q8H PRN PRN (Reason: Nausea) Qty: 15 0RF amoxicillin-pot clavulanate [amoxicillin-pot clavulanate] 875 MG tablet 875 mg PO Q12H Qty: 20 0RF meclizine [Bonine] 25 mg tablet,chewable 25 mg PO TID PRN (Reason: dizziness) Qty: 20 0RF Primary Care Provider: Je Jorge Referrals: Nicko Fernandez MD [Med Staff - Active Staff] - As soon as possible Je Jorge MD [Primary Care Provider] - Activity Restrictions/Additional Instructions: I believe your flank pain is related to dilatation of your right kidney. They do not see an acute kidney stone blocking your ureter. There is a stone in your kidney but does not was causing the pain. This may be from scar tissue. Called a stricture. Ultram for pain. Call and follow-up with the urologist on Wednesday. Hopefully they can get you in to see you this week. He can determine what to do next. This may be chronic because it was seen on a prior CAT scan. It could be getting worse. They need to determine if there is anything they can do surgically to fix it or not. Print Language: Occitan Disposition Disposition: Home, Self Care
--- OUTSIDE RECORDS SUMMARY | 2024-02-12 09:30 | XMS RPT_ITS | CCD ---
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 Name Role Phone Shwetha Kumar MD Primary Care Provider SHWETHA KUMAR Primary Care Unavailable SHWETHA KUMAR Primary Care Unavailable SHWETHA KUMAR Attending Unavailable SHWETHA KUMAR Primary Care Unavailable SHWETHA KUMAR Referring Unavailable SHWETHA KUMAR Primary Care Unavailable SHWETHA KUMAR Attending Unavailable SHWETHA KUMAR Primary Care Unavailable HUGH GARRETT Attending Unavailable Shwetha Kumar MD Primary Care Provider Allergies Allergy Classification Reported Allergen(s) Allergy Type Date of Onset Reaction(s) Facility (10 sources) Lisinopril; Translations: [LISINOPRIL] Drug Allergy 11-03-2017 Cough [facility] (7 sources) Ibuprofen; Translations: [IBUPROFEN] Drug Allergy 10-06-2021 Other: See Comments [facility] Medications Current Medications Medication Drug Class(es) Dates Sig (Normalized) Sig (Original) ascorbic acid 113 mg / beta carotene 7160 mg / cuprous oxide 0.4 mg / dl-alpha tocopheryl acetate 100 unt / zinc oxide 17.4 mg oral tablet (9 sources) Vitamin C Start: 10-01-2020 take 2 tablets by mouth twice daily at mealtime vit A,C,L-Sbcy-Dqobbs (PRESERVISION AREDS) 7,160 unit- 113 mg-100 unit tab Take 2 tablets by mouth twice daily with meals. 10/01/2020 Active Comment on above: Take 2 tablets by [facility] twice daily with meals. aspirin 81 mg delayed release oral tablet (9 sources) Platelet Aggregation Inhibitor, Nonsteroidal Anti-inflammatory Drug take 1 tablet by mouth once daily aspirin, enteric coated (ASPIRIN, ENTERIC COATED) 81 mg EC tablet Take 81 mg by mouth once daily. Active Comment on above: Take 81 mg by mouth once daily. FOLIC ACID/MULTIVIT-MIN/ LUTEIN (CENTRUM SILVER ORAL) (9 sources) FOLIC ACID/MULTIVIT-MIN /LUTEIN (CENTRUM SILVER ORAL) Take by mouth. Active FOLIC ACID/MULTI VIT-MIN/LUTEIN (CENTRUM SILVER ORAL) Take by mouth. 0 Active Comment on above: Take by mouth. latanoprost 0.05 mg/ml ophthalmic solution (9 sources) Prostaglandin Analog Start: take 1 drop(s) into the eye(s) once daily latanoprost (XALATAN) 0.005 % ophthalmic solution Use 1 Drop in the right eye once daily. TO AFFECTED EYE(S) 0 07/01/2017 Active Start: 07-01-2017 take 1 drop(s) into the eye(s) once daily latanoprost (XALATAN) 0.005 % ophthalmic solution Use 1 Drop in the right eye once daily. TO AFFECTED EYE(S) 0 07/01/2017 Active Comment on above: Use 1 Drop in the ri ght eye once daily. TO AFFECTED EYE(S) lidocaine 0.05 mg/mg medicated patch (1 source) Antiarrhythmic, Amide Local Anesthetic Start: 01-15-2022 End: 01-29-2022 lidocaine (LIDODERM) 5 % Apply 1 Patch as directed once daily for 14 days. Remove old patch prior to placing new patch. Location: on for 12 hours and off for 12 hours. Right mid back. 14 Patch 0 01/15/2022 01/29/2022 Active Comment on above: Apply 1 Patch as dir ected once daily for 14 days. Remove old patch prior to placing new patch. Location: on for 12 hours and off for 12 hours. Right mid back. Lutein / zeaxanthin (9 sources) LUTEIN/ZEAXANTHI N (OCUVITE LUTEIN 25 ORAL) Take by mouth. Active LUTEIN/ZEAXANTHI N (OCUVITE LUTEIN 25 ORAL) Take by mouth. 0 Active Comment on above: Take by mouth. predniSONE 20 mg oral tablet (1 source) Start: 01-15-2022 End: 01-20-2022 take 2 tablets by mouth once daily predniSONE (DELTASONE) 20 mg tablet Take 2 tablets by mouth once daily for 5 days. 10 tablet 0 01/15/2022 01/20/2022 Active Comment on above: Take 2 tablets by [facility] once daily for 5 days. 12 hr timolol 5 mg/ml ophthalmic solution (9 sources) beta-Adrenergic Luigi Start: 07-01-2017 take 1 drop(s) into the eye(s) once daily timolol hemihydrate (BETIMOL) 0.5 % ophthalmic solution Use 1 Drop in the right eye once daily. 07/01/2017 Active Start: 07-01-2017 take 1 drop(s) into the eye(s) once daily timolol hemihydrate (BETIMOL) 0.5 % ophthalmic solution Use 1 Drop in the right eye once daily. 0 07/01/2017 Active Comment on above: Use 1 Drop in the ri ght eye once daily. Completed/Discontinued Medications Medication Drug Class(es) Dates Sig (Normalized) Sig (Original) 8 hr acetaminophen 650 mg extended release oral tablet (1 source) Start: 04-06-2023 acetaminophen (TYLENOL ARTHRITIS PAIN) 650 mg CR tablet Take 1 tablet by mouth as needed. 0 04/06/2023 Active Comment on above: Take 1 tablet by [facility] as needed. hydroCHLOROthiazide 12.5 mg / losartan potassium 100 mg oral tablet (11 sources) Thiazide Diuretic, Angiotensin 2 Receptor Luigi Start: 04-01-2021 End: 04-06-2023 take 1 tablet by mouth once daily Losartan-hydroCHLO ROthiazide (HYZAAR) 100-12.5 mg per tablet Indications: Hypertension, essential Take 1 tablet by mouth once daily. 90 tablet 3 04/01/2021 04/06/2022 Discontinued Comment on above: Take 1 tablet by [facility] once daily. meclizine hydrochloride 25 mg oral tablet (3 sources) Antiemetic Start: 07-24-2022 End: 04-06-2023 meclizine (ANTIVERT) 25 mg tab Problems Active Problems Problem Classification Problem Date Documented Date Episodic/Chronic Cataract (9 sources) Cataract of right eye; Translations: [Unspecified cataract] Onset: 07-01-2017 07-01-2017 Chronic Chronic kidney disease (12 sources) Chronic kidney disease stage 3B ; Translations: [Stage 3b chronic kidney disease] Onset: 10-02-2020 10-02-2020 Chronic Chronic kidney disease (1 source) Chronic kidney disease; Translations: [Stage 3b chronic kidney disease (HCC)] Onset: 10-02-2020 Disorders of lipid metabolism (4 sources) Hyperlipidemia; Translations: [Hyperlipidemia, unspecified] Onset: 03-29-2023 Chronic Essential hypertension (13 sources) Essential hypertension; Translations: [Essential (primary) hypertension] Onset: 09-07-2017 09-07-2017 Chronic Glaucoma (9 sources) Glaucoma of right eye; Translations: [Unspecified glaucoma] Onset: 07-01-2017 07-01-2017 Chronic Other aftercare (1 source) Post-discharge follow-up; Translations: [Encounter for follow-up examination after completed treatment for conditions other than malignant neoplasm] Episodic Other lower respiratory disease (1 source) Multiple nodules of lung; Translations: [Other nonspecific abnormal finding of lung field] Episodic Other lower respiratory disease (1 source) Calcification of lung; Translations: [Other disorders of lung] Episodic Spondylosis; intervertebral disc disorders; other back problems (2 sources) Acute low back pain; Translations: [Acute midline low back pain without sciatica] Episodic Past or Other Problems Problem Classification Problem Date Documented Da te Episodic/Chronic Conditions associated with dizziness or vertigo (4 sources) Vertigo; Translations: [Dizziness and giddiness] Onset: 07-29-2022 Episodic Other aftercare (1 source) Encounter for follow-up examination after completed treatment for conditions other than malignant neoplasm; Translations: [Hospital discharge follow-up] Onset: 07-29-2022 Episodic Results Test Name Value Interpretation Reference Range Facility [facility] 04-06-2023 CNOV Office Visit (FAMPWS ) MELISSA JACOBO ([id number]) 1940 F Date Time Provider Department 04/06/23 9:40 AM SHWETHA KUMAR [facility] During your visit today, we recorded the following information about you: Pulse Respiration Blood pressure Weight 78/minute 16/minute 132/84 63.6 kg Shwetha Kumar MD 04/06/2023 11:05 AM Signed Chief Complaint Patient presents with: F/U 6 Month HPI Melissa Jacobo is a 82 year old female who presents here today for 6 month follow up. Here today for her routine 6 month follow up. Drives Gnosticism. No bowel, Gi, or urinary issues. CKD: Monitored with routine labs. HTN: Taking Losartan-HCTZ 100-12.5 once daily. No chest pains, dizziness, or SOB. Will check BP occ at home. Has been around 129-130/68. Vertigo: Denies any issues with vertigo, has been prescribed Meclizine 25 mg tablets in the past. Has not had to use recently. Lipids - Currently on no medication. Denies any regular exercise regimen other than some walking. Tries to watch diet, but admits this is a bad time of year for her. Has glaucoma on regimen for eyes. HM - Declines Flu and Covid vaccine. Past medical history, appointments, medications, allergies reviewed. Previous Medical History PAST MEDICAL HISTORY Diagnosis Date Cataract right eye Glaucoma right eye Previous Surgical History PAST SURGICAL HISTORY Procedure Laterality Date CATARACT EXTRACTION HX Right 07/08/2017 Dr. Erlin Chavarria [facility] Family History FAMILY HISTORY Problem Relation Age of Onset other (Other) Mother old age other (Other) Father old age Cataract Maternal Grandmother Glaucoma Maternal Grandmother Glaucoma Paternal Grandmother Cataract Paternal Grandmother Patient Allergies ALLERGIES Allergen Reactions Ibuprofen Other: See Comments Severe itching Lisinopril Cough Cough, tired, fatigue and no energy Current Medications Current Outpatient Medications on File Prior to Visit Medication Sig meclizine (ANTIVERT) 25 mg tab losartan-hydroCHLOROt hiazide (HYZAAR) 100-12.5 mg per tablet Take 1 tablet by mouth once daily. vit A,C,Q-Zlby-Fimqxy (PRESERVISION AREDS) 7,160 unit- 113 mg-100 unit tab Take 2 tablets by mouth twice daily with meals. timolol hemihydrate (BETIMOL) 0.5 % ophthalmic solution Use 1 Drop in the right eye once daily. latanoprost (XALATAN) 0.005 % ophthalmic solution Use 1 Drop in the right eye once daily. TO AFFECTED EYE(S) LUTEIN/ZEAXANTHIN (OCUVITE LUTEIN 25 ORAL) Take by mouth. FOLIC ACID/MULTIVIT-MIN/LUT EIN (CENTRUM SILVER ORAL) Take by mouth. aspirin, enteric coated (ASPIRIN, ENTERIC COATED) 81 mg EC tablet Take 81 mg by mouth once daily. No current facility-administered medications on file prior to visit. Social History Social History Tobacco Use Smoking status: Never Smokeless tobacco: Never Substance Use Topics Alcohol use: No Drug use: No EXAM: BP 132/84 (BP Site: Left Arm, BP Position: Sitting, BP Cuff Size: Regular Adult) Pulse 78 Resp 16 Wt 63.6 kg (140 lb 3.2 oz) BMI 26.06 kg/m? General Appearance: Well appearing, alert, in no acute distress, well-hydrated, well nourished.. Lungs: Lungs clear to auscultation. No wheezing, rhonchi, rales.. Heart: RRR without murmur, gallop, or rubs. No ectopy. Health Maintenance List RSV Vaccine(1 - 1-dose 60+ series) Never done Influenza Vaccine(1) due on 12/18/2022 Covid-19 Vaccine(4 - 2022-24 season) due on 12/18/2022 DTaP,Tdap,Td Vaccine(1 - Tdap) due on 04/06/2023 Shingrix Vaccine(1 of 2) due on 04/06/2023 Pneumococcal Vaccine: 65+(1 - PCV) due on 04/06/2023 Diabetes Screening due on 03/29/2026 Advance Directive Discussion Completed Depression Assessment Completed Bone Density Screening Addressed Data reviewed Appointment on 03/29/2023 Component Date Value Cholesterol, Total 03/29/2023 282 (H) Triglyceride 03/29/2023 401 (H) HDL Cholesterol 03/29/2023 39 (L) Non HDL Cholesterol 03/29/2023 243 (H) Fasting Time 03/29/2023 14 VLDL Cholesterol 03/29/2023 TC:HDL Ratio 03/29/2023 7.23 (H) LDL Cholesterol 03/29/2023 LDL:HDL Ratio 03/29/2023 Protein, Total 03/29/2023 6.7 Albumin 03/29/2023 4.4 Calcium, Total 03/29/2023 9.5 Bilirubin, Total 03/29/2023 1.0 Alkaline Phosphatase 03/29/2023 69 AST 03/29/2023 28 ALT 03/29/2023 20 Glucose 03/29/2023 104 (H) BUN 03/29/2023 22 (H) Creatinine 03/29/2023 1.12 (H) Sodium 03/29/2023 141 Potassium 03/29/2023 4.5 Chloride 03/29/2023 105 CO2 03/29/2023 25 Anion Gap 03/29/2023 11 Estimated Glomerular Mathieu* 03/29/2023 49 (L) WBC 03/29/2023 6.86 RBC 03/29/2023 3.88 (L) Hemoglobin 03/29/2023 12.2 Hematocrit 03/29/2023 37.2 MCV 03/29/2023 95.9 MCH 03/29/2023 31.4 MCHC 03/29/2023 32.8 RDW-CV 03/29/2023 12.8 Platelet Count 03/29/2023 352 MPV 03/29/2023 9.1 Neutrophils % 03/29/2023 64.6 Abs Neut 12 (more content not included)... Normal [facility] CBC W Auto Differential pane l (Bld)on 03-29-2023 Basophils (Bld) [#/Vol] 0.06 10*3/uL Normal <0.11 [facility] Comment on above: Order Comment: Speci men Type: BLOOD SPECIMEN Ordering Facility: [facility] Address: [address] [place] [address] Performed By: #### 5 7021-8 #### [facility] CLIA [id number] [address] [place] [address] [place] Basophils/100 WBC (Bld) 0.9 % Normal [facility] Comment on above: Order Comment: Speci men Type: BLOOD SPECIMEN Ordering Facility: [facility] Address: [address] [place] [address] Performed By: #### 5 7021-8 #### [facility] CLIA [id number] [address] [place] [address] [place] Differential cell count method Nom (Bld) Auto Normal [facility] Comment on above: Order Comment: Speci men Type: BLOOD SPECIMEN Ordering Facility: [facility] Address: [address] [place] [address] Performed By: #### 5 7021-8 #### [facility] CLIA [id number] [address] [place] [address] [place] Eosinophils (Bld) [#/Vol] 0.29 10*3/uL Normal <0.46 [facility] Comment on above: Order Comment: Speci men Type: BLOOD SPECIMEN Ordering Facility: [facility] Address: [address] [place] [address] Performed By: #### 5 7021-8 #### [facility] CLIA [id number] [address] [place] [address] [place] Eosinophils/100 WBC (Bld) 4.2 % Normal [facility] Comment on above: Order Comment: Speci men Type: BLOOD SPECIMEN Ordering Facility: [facility] Address: [address] [place] [address] Performed By: #### 5 7021-8 #### [facility] CLIA [id number] [address] [place] [address] [place] Erythrocyte distribution width (RBC) [Ratio] 12.8 % Normal 11.5-15.0 [facility] Comment on above: Order Comment: Speci men Type: BLOOD SPECIMEN Ordering Facility: [facility] Address: [address] [place] [address] Performed By: #### 5 7021-8 #### [facility] CLIA [id number] [address] [place] [address] [place] Hematocrit (Bld) [Volume fraction] 37.2 % Normal 36.0-46.0 [facility] Comment on above: Order Comment: Speci men Type: BLOOD SPECIMEN Ordering Facility: [facility] Address: [address] [place] [address] Performed By: #### 5 7021-8 #### [facility] CLIA [id number] [address] [place] [address] [place] Hemoglobin (Bld) [Mass/Vol] 12.2 g/dL Normal 11.5-15.5 [facility] Comment on above: Order Comment: Speci men Type: BLOOD SPECIMEN Ordering Facility: [facility] Address: [address] [place] [address] Performed By: #### 5 7021-8 #### [facility] CLIA [id number] [address] [place] [address] [place] Immature granulocytes (Bld) [#/Vol] 0.03 10*3/uL Normal <0.10 [facility] Comment on above: Order Comment: Speci men Type: BLOOD SPECIMEN Ordering Facility: [facility] Address: [address] [place] [address] Performed By: #### 5 7021-8 #### [facility] CLIA [id number] [address] [place] [address] [place] Immature granulocytes/100 WBC (Bld) 0.4 % Normal [facility] Comment on above: Order Comment: Speci men Type: BLOOD SPECIMEN Ordering Facility: [facility] Address: [address] [place] [address] Performed By: #### 5 7021-8 #### [facility] CLIA [id number] [address] [place] [address] [place] Lymphocytes (Bld) [#/Vol] 1.31 10*3/uL Normal 1.00-4.00 [facility] Comment on above: Order Comment: Speci men Type: BLOOD SPECIMEN Ordering Facility: [facility] Address: [address] [place] [address] Performed By: #### 5 7021-8 #### [facility] CLIA [id number] [address] [place] [address] [place] Lymphocytes/100 WBC (Bld) 19.1 % Normal [facility] Comment on above: Order Comment: Speci men Type: BLOOD SPECIMEN Ordering Facility: [facility] Address: [address] [place] [address] Performed By: #### 5 7021-8 #### [facility] CLIA [id number] [address] [place] [address] [place] MCH (RBC) [Entitic mass] 31.4 pg Normal 26.0-34.0 [facility] Comment on above: Order Comment: Speci men Type: BLOOD SPECIMEN Ordering Facility: [facility] Address: [address] [place] [address] Performed By: #### 5 7021-8 #### [facility] CLIA [id number] [address] [place] [address] [place] MCHC (RBC) [Mass/Vol] 32.8 g/dL Normal 30.5-36.0 [facility] Comment on above: Order Comment: Speci men Type: BLOOD SPECIMEN Ordering Facility: [facility] Address: [address] [place] [address] Performed By: #### 5 7021-8 #### [facility] CLIA [id number] [address] [place] [address] [place] MCV (RBC) [Entitic vol] 95.9 fL Normal 80.0-100.0 [facility] Comment on above: Order Comment: Speci men Type: BLOOD SPECIMEN Ordering Facility: [facility] Address: [address] [place] [address] Performed By: #### 5 7021-8 #### [facility] CLIA [id number] [address] [place] [address] [place] Monocytes (Bld) [#/Vol] 0.74 10*3/uL Normal <0.87 [facility] Comment on above: Order Comment: Speci men Type: BLOOD SPECIMEN Ordering Facility: [facility] Address: [address] [place] [address] Performed By: #### 5 7021-8 #### [facility] CLIA [id number] [address] [place] [address] [place] Monocytes/100 WBC (Bld) 10.8 % Normal [facility] Comment on above: Order Comment: Speci men Type: BLOOD SPECIMEN Ordering Facility: [facility] Address: [address] [place] [address] Performed By: #### 5 7021-8 #### [facility] CLIA [id number] [address] [place] [address] [place] Neutrophils (Bld) [#/Vol] 4.43 10*3/uL Normal 1.45-7.50 [facility] Comment on above: Order Comment: Speci men Type: BLOOD SPECIMEN Ordering Facility: [facility] Address: [address] [place] [address] Performed By: #### 5 7021-8 #### [facility] CLIA [id number] [address] [place] [address] [place] Neutrophils/100 WBC (Bld) 64.6 % Normal [facility] Comment on above: Order Comment: Speci men Type: BLOOD SPECIMEN Ordering Facility: [facility] Address: [address] [place] [address] Performed By: #### 5 7021-8 #### [facility] CLIA [id number] [address] [place] [address] [place] Nucleated RBC (Bld) [#/Vol] 10*3/uL Normal <0.01 [facility] Comment on above: Order Comment: Speci men Type: BLOOD SPECIMEN Ordering Facility: [facility] Address: [address] [place] [address] Performed By: #### 5 7021-8 #### [facility] CLIA [id number] [address] [place] [address] [place] Nucleated RBC/100 WBC (Bld) [Ratio] 0.0 /100 WBC Normal [facility] Comment on above: Order Comment: Speci men Type: BLOOD SPECIMEN Ordering Facility: [facility] Address: [address] [place] [address] Performed By: #### 5 7021-8 #### [facility] CLIA [id number] [address] [address] [place] Platelet mean volume (Bld) [Entitic vol] 9.1 fL Normal 9.0-12.7 [facility] Comment on above: Order Comment: Speci men Type: BLOOD SPECIMEN Ordering Facility: [facility] Address: [address] [place] [address] Performed By: #### 5 7021-8 #### [facility] CLIA [id number] [address] [place] [address] [place] Platelets (Bld) [#/Vol] 352 10*3/uL Normal 150-400 [facility] Comment on above: Order Comment: Speci men Type: BLOOD SPECIMEN Ordering Facility: [facility] Address: [address] [place] [address] Performed By: #### 5 7021-8 #### [facility] CLIA [id number] [address] [place] [address] [place] RBC (Bld) [#/Vol] 3.88 10*6/uL Low 3.90-5.20 [facility] Comment on above: Order Comment: Speci men Type: BLOOD SPECIMEN Ordering Facility: [facility] Address: [address] [place] [address] Performed By: #### 5 7021-8 #### [facility] CLIA [id number] [address] [place] [address] [place] WBC (Bld) [#/Vol] 6.86 10*3/uL Normal 3.70-11.00 [facility] Comment on above: Order Comment: Speci men Type: BLOOD SPECIMEN Ordering Facility: [facility] Address: [address] [place] [address] Performed By: #### 5 7021-8 #### [facility] CLIA [id number] [address] [id number] [address] [place] Cholesterol in LDL Direct as say [Mass/Vol]on 03-29-2023 Cholesterol in LDL [Mass/Vol] 147 mg/dL High <100 [facility] Comment on above: Order Comment: Speci men Type: BLOOD SPECIMEN Ordering Facility: [facility] Address: [address] [place] [address] Result Comment: <100 mg/dL, Optimal 100-129 mg/dL, Near optimal/above optimal 130-159 mg/dL, Borderline high 160-189 mg/dL, High >189 mg/dL, Very high Secondary prevention optimal LDL Cholesterol levels are recommended to be < 70 mg/dL Performed By: #### 2 4323-8, 87735-8, 34183-8 #### [facility] CLIA [id number] [address] [place] [address] [place] Cholesterol in VLDL [Mass/Vol] 96 mg/dL High <30 [facility] Comment on above: Order Comment: Benignoi men Type: BLOOD SPECIMEN Ordering Facility: [facility] Address: [address] [place] [address] Performed By: #### 2 4323-8, 76689-1, 92011-7 #### [facility] CLIA [id number] [address] [place] [address] [place] Comprehensive metabolic 2000 panelon 03-29-2023 Albumin [Mass/Vol] 4.4 g/dL Normal 3.9-4.9 [facility] Comment on above: Order Comment: Speci men Type: BLOOD SPECIMEN Ordering Facility: [facility] Address: [address] [place] [address] Performed By: #### 2 4323-8, 71556-8, 19263-7 #### [facility] CLIA [id number] [address] [place] [address] [place] ALP [Catalytic activity/Vol] 69 U/L Normal 34-123 [facility] Comment on above: Order Comment: Speci men Type: BLOOD SPECIMEN Ordering Facility: [facility] Address: [address] [place] [address] Performed By: #### 2 4323-8, 30994-1, 55187-5 #### [facility] CLIA [id number] [address] [place] [address] [place] ALT [Catalytic activity/Vol] 20 U/L Normal 7-38 [facility] Comment on above: Order Comment: Speci men Type: BLOOD SPECIMEN Ordering Facility: [facility] Address: [address] [place] [address] Performed By: #### 2 4323-8, 67491-8, 34336-4 #### [facility] CLIA [id number] [address] [place] [address] [place] Anion gap [Moles/Vol] 11 mmol/L Normal 9-18 [facility] Comment on above: Order Comment: Speci men Type: BLOOD SPECIMEN Ordering Facility: [facility] Address: [address] [place] [address] Performed By: #### 2 4323-8, 56352-2, 17149-7 #### [facility] CLIA [id number] [address] [place] [address] [place] AST [Catalytic activity/Vol] 28 U/L Normal 13-35 [facility] Comment on above: Order Comment: Speci men Type: BLOOD SPECIMEN Ordering Facility: [facility] Address: [address] [place] [address] Performed By: #### 2 4323-8, 77718-5, 65789-7 #### [facility] CLIA [id number] [address] [place] [address] [place] Bilirubin [Mass/Vol] 1.0 mg/dL Normal 0.2-1.3 [facility] Comment on above: Order Comment: Speci men Type: BLOOD SPECIMEN Ordering Facility: [facility] Address: [address] [place] [address] Performed By: #### 2 4323-8, 05578-9, 98792-6 #### [facility] CLIA [id number] [address] [place] [address] [place] Calcium [Mass/Vol] 9.5 mg/dL Normal 8.5-10.2 [facility] Comment on above: Order Comment: Speci men Type: BLOOD SPECIMEN Ordering Facility: [facility] Address: [address] [place] [address] Performed By: #### 2 4323-8, 00357-3, 39298-1 #### [facility] CLIA [id number] [address] [place] [address] [place] Chloride [Moles/Vol] 105 mmol/L Normal 97-105 [facility] Comment on above: Order Comment: Speci men Type: BLOOD SPECIMEN Ordering Facility: [facility] Address: [address] [place] [address] Performed By: #### 2 4323-8, 88506-4, 63435-5 #### [facility] CLIA [id number] [address] [place] [address] [place] CO2 [Moles/Vol] 25 mmol/L Normal 22-30 [facility] Comment on above: Order Comment: Speci men Type: BLOOD SPECIMEN Ordering Facility: [facility] Address: [address] [place] [address] Performed By: #### 2 4323-8, 63377-7, 91762-7 #### [facility] CLIA [id number] [address] [place] [address] [place] Creatinine [Mass/Vol] 1.12 mg/dL High 0.58-0.96 [facility] Comment on above: Order Comment: Speci men Type: BLOOD SPECIMEN Ordering Facility: [facility] Address: [address] [place] [address] Performed By: #### 2 4323-8, 62894-6, 66172-9 #### [facility] CLIA [id number] [address] [place] [address] [place] Creatinine and Glomerular filtration rate.predicted panel (S/P/Bld) 49 mL/min/1.73m??? Low >=60 [facility] Comment on above: Order Comment: Alla shaikh Type: BLOOD SPECIMEN Ordering Facility: [facility] Address: [address] [place] [address] Result Comment: Ambreen mated Glomerular Filtration Rate (eGFR) is calculated using the 2020 CKD-EPI creatinine equation. This equation utilizes serum creatinine, sex, and age as parameters. The creatinine assay has traceable calibration to isotope dilution-mass spectrometry. Refer to KDIGO guidelines for clinical interpretation. In patients with unstable renal function, e.g. those with acute kidney injury, the eGFR may not accurately reflect actual GFR. Performed By: #### 2 4323-8, 49507-1, 74391-9 #### [facility] CLIA [id number] [address] [place] [address] [place] Glucose [Mass/Vol] 104 mg/dL High 74-99 [facility] Comment on above: Order Comment: Alla shaikh Type: BLOOD SPECIMEN Ordering Facility: [facility] Address: [address] [place] [address] Result Comment: The [place] Diabetes Association (ADA) provides guidance for cutoff values for fasting glucose and random glucose. The ADA defines fasting as no caloric intake for at least 8 hours. Fasting plasma glucose results between 100 to 125 mg/dL indicate increased risk for diabetes (prediabetes). Fasting plasma glucose results greater than or equal to 126 mg/dL meet the criteria for diagnosis of diabetes. In the absence of unequivocal hyperglycemia, results should be confirmed by repeat testing. In a patient with classic symptoms of hyperglycemia or hyperglycemic crisis, random plasma glucose results greater than or equal to 200 mg/dL meet the criteria for diagnosis of diabetes. Reference: Standards of Medical Care in Diabetes 2016, [place] [employer] Association. Diabetes Care. 2016.39(Suppl 1). Performed By: #### 2 4323-8, 77128-5, 07325-7 #### [facility] CLIA [id number] [address] [place] [id number] [place] Potassium [Moles/Vol] 4.5 mmol/L Normal 3.7-5.1 [facility] Comment on above: Order Comment: Speci men Type: BLOOD SPECIMEN Ordering Facility: [facility] Address: [address] [place] [address] Performed By: #### 2 4323-8, 69159-6, 28993-0 #### [facility] CLIA [id number] [address] [place] [address] [place] Protein [Mass/Vol] 6.7 g/dL Normal 6.3-8.0 [facility] Comment on above: Order Comment: Speci men Type: BLOOD SPECIMEN Ordering Facility: [facility] Address: [address] [place] [address] Performed By: #### 2 4323-8, 10868-4, 00757-8 #### [facility] CLIA [id number] [address] [place] [address] [place] Sodium [Moles/Vol] 141 mmol/L Normal 136-144 [facility] Comment on above: Order Comment: Speci men Type: BLOOD SPECIMEN Ordering Facility: [facility] Address: [address] [place] [address] Performed By: #### 2 4323-8, 17797-6, 11658-7 #### [facility] CLIA [id number] [address] [place] [address] [place] Urea nitrogen [Mass/Vol] 22 mg/dL High 7-21 [facility] Comment on above: Order Comment: Speci men Type: BLOOD SPECIMEN Ordering Facility: [facility] Address: [address] [place] [address] Performed By: #### 2 4323-8, 19443-9, 54560-5 #### [facility] CLIA [id number] [address] [place] [id number] [place] Lipid 1996 panelon 3 Cholesterol [Mass/Vol] 282 mg/dL High <200 [facility] Comment on above: Order Comment: Speci men Type: BLOOD SPECIMEN Ordering Facility: [facility] Address: [address] [place] [address] Result Comment: <200 mg/dL, Desirable 200-239 mg/dL, Borderline high >239 mg/dL, High Performed By: #### 2 4323-8, 32237-6, 81701-4 #### [facility] CLIA [id number] [address] [facility] [place] [address] [place] Cholesterol in HDL [Mass/Vol] 39 mg/dL Low >39 [facility] Comment on above: Order Comment: Speci men Type: BLOOD SPECIMEN Ordering Facility: [facility] Address: [address] [place] [address] Result Comment: 40-5 9 mg/dL, Acceptable >59 mg/dL, High: Negative risk factor for coronary heart disease <40 mg/dL, Low: Positive risk factor for coronary heart disease Performed By: #### 2 4323-8, 04575-2, 39026-5 #### [facility] CLIA [id number] [address] [place] [address] [place] Cholesterol in LDL [Mass/Vol] Normal [facility] Comment on above: Order Comment: Speci men Type: BLOOD SPECIMEN Ordering Facility: [facility] Address: [address] [place] [address] Result Comment: Unab le to calculate due to increased Triglycerides. See LDL-Chol, Direct. Performed By: #### 2 4323-8, 74927-5, 45149-0 #### [facility] CLIA [id number] [address] [place] [address] [place] Cholesterol in LDL/Cholesterol in HDL [Mass ratio] Normal [facility] Comment on above: Order Comment: Speci men Type: BLOOD SPECIMEN Ordering Facility: [facility] Address: [address] [place] [address] Result Comment: Unab le to calculate due to elevated Triglycerides. Reference: 1. National Cholesterol Education Program ATP III Guideline At-A-Glance Quick Desk Reference: National Heart, Lung, and Blood [place]. National Institutes of Health. 2001: NIH Publication No. 01-3305. 2. An International Atherosclerosis Society position paper: global recommendations for the management of dyslipidemia: executive summary, Atherosclerosis. 2014: 232(2):410-413. Performed By: #### 2 4323-8, 42155-2, 85601-0 #### [facility] CLIA [id number] [address] [place] [address] [place] Cholesterol in VLDL [Mass/Vol] Normal [facility] Comment on above: Order Comment: Speci men Type: BLOOD SPECIMEN Ordering Facility: [facility] Address: [address] [place] [address] Result Comment: Unab le to calculate due to increased Triglycerides. See LDL-Chol, Direct. Performed By: #### 2 4323-8, 00947-7, 79884-0 #### [facility] CLIA [id number] [address] [place] [address] [place] Cholesterol non HDL [Mass/Vol] 243 mg/dL High <130 [facility] Comment on above: Order Comment: Alla shaikh Type: BLOOD SPECIMEN Ordering Facility: [facility] Address: [address] [place] [address] Result Comment: <130 mg/dL, Optimal 130-159 mg/dL, Near optimal/above optimal 160-189 mg/dL, Borderline high 190-219 mg/dL, High >219 mg/dL, Very high Secondary prevention optimal non HDL Cholesterol levels are recommended to be <100 mg/dL Performed By: #### 2 4323-8, 91977-9, 62701-6 #### [facility] CLIA [id number] [address] [place] [address] [place] Cholesterol.total/Cho lesterol in HDL [Mass ratio] 7.23 {ratio} High <5.10 [facility] Comment on above: Order Comment: Alla shaikh Type: BLOOD SPECIMEN Ordering Facility: [facility] Address: [address] [place] [address] Performed By: #### 2 4323-8, 30558-6, 02771-8 #### [facility] CLIA [id number] [address] [place] [address] [place] FASTING TIME 14 hrs Normal [facility] Comment on above: Order Comment: Speci men Type: BLOOD SPECIMEN Ordering Facility: [facility] Address: [address] [place] [address] Performed By: #### 2 4323-8, 31503-2, 30358-7 #### [facility] CLIA [id number] [address] [place] [address] [place] Triglyceride [Mass/Vol] 401 mg/dL High <150 [facility] Comment on above: Order Comment: Speci men Type: BLOOD SPECIMEN Ordering Facility: [facility] Address: [address] [place] [address] Result Comment: <150 mg/dL, Normal 150-199 mg/dL, Borderline high 200-499 mg/dL, High >499 mg/dL, Very high Performed By: #### 2 4323-8, 79382-0, 36619-0 #### [facility] CLIA [id number] [address] [place] [address] [place] CNOVon 10-05-2022 CNOV Office Visit (FAMPWS ) MELISSA JACOBO ([id number]) 1940 F Date Time Provider Department 10/05/22 1:00 PM SHWETHA KUMAR During your visit today, we recorded the following information about you: Pulse Respiration Blood pressure Weight 68/minute 16/minute 122/70 63.1 kg Shwetha Kumar MD 10/05/2022 1:04 PM Signed Chief Complaint Patient presents with: 6 Month Exam HPI Melissa Jacobo is a 81 year old female who presents here today for 6 month follow up. 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 She takes them to doctors appt and grocery shopping. Has 2 great grandchildren that live in [place], [place]. Does not have an advanced directive. HM: Depression screening; denies feeling depressed or hopeless. Denies any bowel, Gi, or urinary issues. No regular exercise but does walk some. She does not do any gardening due to not being able to get back up off the ground. Has a few hanging flower pots. HTN: Taking Hyzaar 100-12.5 mg daily. Denies any chest pains, dizziness, or SOB. Checking BP occ at home. No longer needs the Meclizine, vertigo improved. Has it if needed. CKD: Monitored with routine labs. Past medical history, appointments, medications, allergies reviewed. Previous Medical History PAST MEDICAL HISTORY Diagnosis Date Cataract right eye Glaucoma right eye Previous Surgical History PAST SURGICAL HISTORY Procedure Laterality Date CATARACT EXTRACTION HX Right 07/08/2017 Dr. Kern [facility] Family History FAMILY HISTORY Problem Relation Age of Onset other (Other) Mother old age other (Other) Father old age Cataract Maternal Grandmother Glaucoma Maternal Grandmother Glaucoma Paternal Grandmother Cataract Paternal Grandmother Patient Allergies ALLERGIES Allergen Reactions Ibuprofen Other: See Comments Severe itching Lisinopril Cough Cough, tired, fatigue and no energy Current Medications Current Outpatient Medications on File Prior to Visit Medication Sig meclizine (ANTIVERT) 25 mg tab losartan-hydroCHLOROt hiazide (HYZAAR) 100-12.5 mg per tablet Take 1 tablet by mouth once daily. vit A,C,F-Wgaw-Sfkvcv (PRESERVISION AREDS) 7,160 unit- 113 mg-100 unit tab Take 2 tablets by mouth twice daily with meals. timolol hemihydrate (BETIMOL) 0.5 % ophthalmic solution Use 1 Drop in the right eye once daily. latanoprost (XALATAN) 0.005 % ophthalmic solution Use 1 Drop in the right eye once daily. TO AFFECTED EYE(S) LUTEIN/ZEAXANTHIN (OCUVITE LUTEIN 25 ORAL) Take by mouth. FOLIC ACID/MULTIVIT-MIN/LUT EIN (CENTRUM SILVER ORAL) Take by mouth. aspirin, enteric coated (ASPIRIN, ENTERIC COATED) 81 mg EC tablet Take 81 mg by mouth once daily. No current facility-administered medications on file prior to visit. Social History Social History Tobacco Use Smoking status: Never Smokeless tobacco: Never Substance Use Topics Alcohol use: No Drug use: No EXAM: BP 122/70 Pulse 68 Resp 16 Wt 63.1 kg (139 lb 1.6 oz) BMI 25.86 kg/m? General Appearance: Well appearing, alert, in no acute distress, well-hydrated, well nourished.. Lungs: Lungs clear to auscultation. No wheezing, rhonchi, rales.. Heart: RRR without murmur, gallop, or rubs. No ectopy. Health Maintenance List ADVANCE DIRECTIVE DISCUSSION due on 04/19/2022 DEPRESSION ASSESSMENT due on 04/19/2022 DTAP,TDAP,TD(1 - Tdap) due on 04/06/2023 SHINGRIX VACCINE(1 of 2) due on 04/06/2023 COVID-19 VACCINE(4 - Booster for Pfizer series) due on 04/06/2023 PNEUMOCOCCAL: 65+(1 - PCV) due on 04/06/2023 INFLUENZA(Season Ended) due on 12/18/2022 DIABETES SCREEN due on 03/30/2025 BONE DENSITY Addressed Data reviewed None ASSESSMENT/PLAN: 1. Hypertension, essential - ICD9: 401.9, ICD10: I10 (primary diagnosis) - Controlled - Continue current medications - LIPID PANEL BASIC 2. Stage 3b chronic kidney disease (HCC) - ICD9: 585.3, ICD10: N18.32 - eGFR: Stable - COMP METABOLIC PANEL - CBC + DIFF 3. Hyperlipidemia, unspecified hyperlipidemia type - ICD9: 272.4, ICD10: E78.5 - Check labs in 6 months - LIPID PANEL BASIC - COMP METABOLIC PANEL Follow up in 6 months with fasting labs prior. I agree with the Chief Complaint, ROS, and Past Histories independently gathered by the clinical network diagnostic support specialist and the remaining scribed note accurately describes my personal service to the patient. Medical Decision Making: Problems: Low: Stable chronic illness Data: Unique test(s) ordered: 3+ Risk: Moderate: Drug management Medical Decision Making Level: 4 - Moderate Shwetha Kumar MD The documentation for this note was completed by Manju Hollingsworth Ma acting as scribe for Shwetha Kumar MD. October 05, 2022 12:52 PM. Manju Hollingsworth Ma Allergies As of Date: 10/05/2022 Noted Allergy Reaction IBUPROFEN 10/06/2021 14 - Other: See Beth (more content not included)... Normal [facility] CNOVon 07-29-2022 CNOV Office Visit (FAMPWS ) MELISSA JACOBO ([id number]) 1940 F Date Time Provider Department 07/29/22 9:00 AM HUGH GARRETT During your visit today, we recorded the following information about you: Pulse Respiration Blood pressure Weight 75/minute 16/minute 126/74 63 kg Hugh Garrett APRN.GOVERNMENT GUARD 07/29/2022 8:55 AM Signed Recommend at home exercises as needed. Keep scheduled appointments with ENT May use meclizine as needed for dizziness. Follow up as needed. Benign Paroxysmal Positional Vertigo (BPPV) What is BPPV? Benign Paroxysmal Positional Vertigo (BPPV) is an inner ear disorder in which changes to the position of the head, such as tipping the head backward, lead to sudden vertigo -- a feeling that the room is spinning. Vertigo can vary in intensity from mild to severe and usually lasts only a few minutes. It may be accompanied by other symptoms, including dizziness lightheadedness a sense of imbalance nausea vomiting Anatomy of the right inner ear. Particle repositioning therapy moves the otoconia out of the semicircular canals and into the utricle where they dissolve naturally. BPPV is not a sign of a serious problem, and it usually disappears on its own within 6 weeks of the first episode. However, the symptoms of BPPV can be very frightening and may be dangerous, especially in older individuals. The unsteadiness associated with BPPV can lead to falls. About half of all people over age 65 experience an episode of BPPV, and falls are a leading cause of fractures in this age-range. What causes BPPV? BPPV develops when calcium carbonate crystals, which are known as otoconia, shift into and become trapped within the semicircular canals (one of the vestibular organs of the inner ear that controls balance). The otoconia make up a normal part of the structure of the utricle, a vestibular organ next to the semicircular canals. (see illustration to the right.) In the utricle, the otoconia may be loosened as a result of injury, infection, or age, and they land in a sac -- the utricle -- where they are naturally dissolved. However, otoconia in the semicircular canals will not dissolve. As a person?s head position changes, the otoconia begin to roll around and push on the tiny hairs that line the semicircular canals. Those hairs act as sensors to give the brain information about balance. Vertigo develops when the hairs are stimulated by the rolling otoconia. What head positions trigger BPPV? Movements that can trigger an episode of BPPV include rolling over or sitting up in bed, bending the head forward to look down, or tipping the head backward. In most people, only a single ear is affected by BPPV, although both ears may be involved on occasion. How is BPPV diagnosed and treated? With advances in medical technology, BPPV can easily be diagnosed and treated. The diagnosis can usually be made in the office based on medical history and a physical exam. Treatment also involves a short, simple in-office procedure known as the particle repositioning maneuver. (See addendum below.) How can I identify the affected side? Steps to determine affected side: Sit on bed so that if you lie down, your head hangs slightly over the end of the bed. Turn head to the right and lie back quickly. Wait 1 minute. If you feel dizzy, then the right ear is your affected ear. If no dizziness occurs, sit up. Wait 1 minute. Turn head to the left and lie back quickly. Wait 1 minute. If you feel dizzy, then the left ear is your affected ear. Right position Left position How successful is the treatment? A single particle repositioning procedure is effective in treating about 80% to 90% of cases of BPPV. Additional exercise or repositioning maneuvers may be needed if symptoms persist. Can BPPV recur? If so, what can I do? A new episode of BPPV can develop after successful treatment -- on average there is a 15 percent rate of recurrence each year. However, it may be possible to treat recurrent BPPV at home by performing a series of movements at the time an episode occurs. Patients will receive information on ways to handle recurrences on their own or they can work with a physical therapist to develop a plan. In general, if you wake up with positional vertigo, slowly move into the [id number] position and wait for a minute. Next, slowly move into a face-down position and slide to the foot of the bed. Keep your head down until you reach the end of the bed and are kneeling or standing on the floor. Slowly bring your head backward into an upright position. Hold on to the bed at all times. Another method is to sit toward the foot of the bed, leaving enough room to lay back with your head resting comfortably at the end of the bed, slightly extended. Be careful not to overextend your neck (more content not included)... Normal [facility] CNOVon 07-24-2022 CNOV Office Visit (UCWSTR ) MELISSA JACOBO ([id number]) 1940 F Date Time Provider Department 07/24/22 10:15 AM PATRICA ROUSE [facility] During your visit today, we recorded the following information about you: Temperature Pulse Respiration Blood pressure 97.8 degrees 81/minute 18/minute 130/78 Weight 63.8 kg Patrica Rouse APRN.GOVERNMENT GUARD 07/24/2022 10:56 AM Signed Subjective HPI Melissa presents today for complaint of dizziness. She states that last Wednesday she felt dizzy and then felt well until today. She woke up feeling very dizzy, she states the room is spinning when she gets up or moves her head in any direction. She wears hearing aides. She has hx of htn Review of Systems Neurological: Positive for dizziness. Negative for tingling, tremors, sensory change, speech change, focal weakness, seizures, loss of consciousness, weakness and headaches. All other systems reviewed and are negative. Objective Physical Exam Vitals and nursing note reviewed. Constitutional: General: She is not in acute distress. Appearance: Normal appearance. She is not toxic-appearing. HENT: Head: Normocephalic and atraumatic. Right Ear: There is impacted cerumen. Nose: Nose normal. Mouth/Throat: Mouth: Mucous membranes are dry. Eyes: Pupils: Pupils are equal, round, and reactive to light. Cardiovascular: Rate and Rhythm: Normal rate and regular rhythm. Pulses: Normal pulses. Heart sounds: Normal heart sounds. Pulmonary: Effort: Pulmonary effort is normal. Breath sounds: Normal breath sounds. Abdominal: General: Abdomen is flat. Palpations: Abdomen is soft. Genitourinary: General: Normal vulva. Musculoskeletal: General: Normal range of motion. Cervical back: Normal range of motion. Skin: General: Skin is warm and dry. Neurological: General: No focal deficit present. Mental Status: She is alert and oriented to person, place, and time. Mental status is at baseline. GCS: GCS eye subscore is 4. GCS verbal subscore is 5. GCS motor subscore is 6. Cranial Nerves: No cranial nerve deficit. Sensory: No sensory deficit. Motor: No weakness. Coordination: Coordination abnormal. Gait: Gait abnormal. Deep Tendon Reflexes: Reflexes normal. Psychiatric: Mood and Affect: Mood normal. Behavior: Behavior normal. ASSESSMENT/PLAN: 1. Vertigo - ICD9: 780.4, ICD10: R42 Report to ED due to vertigo Patrica Rouse APRN.MARCELLA Kang LPN 07/24/2022 10:56 AM Signed Ambulatory Ear Lavage Pre-treatment: Warm water Treatment: Both ears Equipment and Irrigation solution and Volume used: Single use syringe with single use irrigation tip Return flow appearance: Other No debris seen, clear return. Patient tolerated procedure: yes Post-treatment: Post Irrigation Post-treatment: Ear Canal/Tympanic membrane assessed by TOMASZ Rouse. Genna Kang LPN Allergies As of Date: 07/24/2022 Noted Allergy Reaction IBUPROFEN 10/06/2021 14 - Other: See Comments Comments: Severe itching LISINOPRIL 11/03/2017 3 - Cough Comments: Cough, tired, fatigue and no energy Date Reviewed: 07/24/2022 Reviewed by: Genna Kang LPN - Fully Assessed Reason for Visit: Dizziness [36] Cmt: Pt denied fall, chest pain,ear pain, urinary sxs, c/o dizziness x1 wk. Primary Visit Diagnosis:Vertigo [R42] Prescriptions as of 07/24/2022 - losartan-hydroCHLOROt hiazide (HYZAAR) 100-12.5 mg per tablet Take 1 tablet by mouth once daily. - vit A,C,Q-Kcrc-Yoexsg (PRESERVISION AREDS) 7,160 unit- 113 mg-100 unit tab Take 2 tablets by mouth twice daily with meals. - timolol hemihydrate (BETIMOL) 0.5 % ophthalmic solution Use 1 Drop in the right eye once daily. - latanoprost (XALATAN) 0.005 % ophthalmic solution Use 1 Drop in the right eye once daily. TO AFFECTED EYE(S) - LUTEIN/ZEAXANTHIN (OCUVITE LUTEIN 25 ORAL) Take by mouth. - FOLIC ACID/MULTIVIT-MIN/LUT EIN (CENTRUM SILVER ORAL) Take by mouth. - aspirin, enteric coated (ASPIRIN, ENTERIC COATED) 81 mg EC tablet Take 81 mg by mouth once daily. Meds Comments as of 04/06/2022: Anup Ramirez [place] - Pharmacy. Brimonidine Tartrate 0.2% 2 a day both eyes. Problem List As Of Date 07/24/2022 Noted Resolved Glaucoma of right eye [H40.9] 07/01/2017 Cataract of right eye [H26.9] 07/01/2017 Hypertension, essential [I10] 09/07/2017 Stage 3b chronic kidney disease (HCC) [N18.32] 10/02/2020 Encounter Status:Closed by PATRICA ROUSE on 07/24/22 Normal [facility] CT CHEST WO IVCONon 07-19-19 [facility] XR Thoracic spine AP and Lat eral and Swimmerson 07-01-2021 IMPRESSION: Thoracic spine degenerative changes. [employer]fection[employer] Laboratory Manager: CHRISTELLE Transcribe Date/Time: Jul 01 2021 10:48A Dictated by : AUBREY KAY MD This examination was interpreted and the report reviewed and electronically signed by: AUBREY KAY MD on Jul 01 2021 10:50AM [facility] DIVISION OF RADIOLOGY * * *Final Report* * * DATE OF EXAM: Jun 30 2021 2:11PM WOX [id number] - XR THORACIC 3V AP/LAT/SWIMMERS / PROCEDURE REASON: Upper back pain * * * * Physician Interpretation * * * * EXAM TITLE: XR THORACIC 3V AP/LAT/SWIMMERS EXAM DATE/TIME: 06/30/2021 2:11 PM COMPARISON: None. CLINICAL INDICATION/HISTORY: Upper back pain. TECHNIQUE: AP, swimmer's and lateral views of the thoracic spine are presented FINDINGS: No acute fractures or subluxations are noted. Disc space narrowing is noted in the mid thoracic spine, with or without endplate sclerosis. There is mild osteophyte formation. The bones are somewhat osteopenic. There is no paraspinal mass or bony destructive process. Others: There are degenerative changes in the cervical spine. A focal calcification in the right lung. DIVISION OF RADIOLOGY Provider, [facility] - 07/01/2021 * * *Final Report* * * DATE OF EXAM: Jun 30 2021 2:11PM WOX [id number] - XR THORACIC 3V AP/LAT/SWIMMERS / PROCEDURE REASON: Upper back pain * * * * Physician Interpretation * * * * EXAM TITLE: XR THORACIC 3V AP/LAT/SWIMMERS EXAM DATE/TIME: 06/30/2021 2:11 PM COMPARISON: None. CLINICAL INDICATION/HISTORY: Upper back pain. TECHNIQUE: AP, swimmer's and lateral views of the thoracic spine are presented FINDINGS: No acute fractures or subluxations are noted. Disc space narrowing is noted in the mid thoracic spine, with or without endplate sclerosis. There is mild osteophyte formation. The bones are somewhat osteopenic. There is no paraspinal mass or bony destructive process. Others: There are degenerative changes in the cervical spine. A focal calcification in the right lung. IMPRESSION IMPRESSION: Thoracic spine degenerative changes. [employer]fection[employer] Laboratory Manager: CHRISTELLE Transcribe Date/Time: Jul 01 2021 10:48A Dictated by : AUBREY KAY MD This examination was interpreted and the report reviewed and electronically signed by: AUBREY KAY MD on Jul 01 2021 10:50AM [facility] XR Thoracic spine AP and Lat eral and SwimmersOrdered By: [facility] Provider on 07-01-2021 [facility] XR Thoracic spine AP and Lat eral and Swimmerson 06-30-2021 Radiology Study observation (narrative) [facility] Vital Signs Date Time Vital Sign Value Performing Clinician Mich martino 04-06-2023 09:30-0500 Body weight 63.59 kg Shwetha Kumar MD Work Phone: [facility] 04-06-2023 09:30-0500 Diastolic blood pressure 84 mm[Hg] Shwetha Kumar MD Work Phone: [facility] 04-06-2023 09:30-0500 Heart rate 78 /min Shwetha Kumar MD Work Phone: [facility] 04-06-2023 09:30-0500 Respiratory rate 16 /min Shwetha Kumar MD Work Phone: [facility] 04-06-2023 09:30-0500 Systolic blood pressure 132 mm[Hg] Shwetha Kumar MD Work Phone: [facility] 10-05-2022 12:38-0400 Body weight 63.09 kg Shwetha Kumar MD Work Phone: [facility] 10-05-2022 12:38-0400 Diastolic blood pressure 70 mm[Hg] Shwetha Kumar MD Work Phone: [facility] 10-05-2022 12:38-0400 Heart rate 68 /min Shwetha Kumar MD Work Phone: [facility] 10-05-2022 12:38-0400 Respiratory rate 16 /min Shwetha Kumar MD Work Phone: [facility] 10-05-2022 12:38-0400 Systolic blood pressure 122 mm[Hg] Shwetha Kumar MD Work Phone: [facility] 07-29-2022 08:44-0400 Body weight 63.05 kg Hugh Garrett APRN.CNP Work Phone: [facility] 07-29-2022 08:44-0400 Diastolic blood pressure 74 mm[Hg] Hugh Garrett APRN.GOVERNMENT GUARD Work Phone: [facility] 07-29-2022 08:44-0400 Heart rate 75 /min Hugh Tannhof [employer]MER.GOVERNMENT GUARD Work Phone: [facility] 07-29-2022 08:44-0400 Respiratory rate 16 /min Hugh Tannhof [employer]MER.GOVERNMENT GUARD Work Phone: [facility] 07-29-2022 08:44-0400 SaO2% (BldA) [Mass fraction] 97 % Hugh Tannhof [employer]MER.GOVERNMENT GUARD Work Phone: [facility] 07-29-2022 08:44-0400 Systolic blood pressure 126 mm[Hg] Hugh Tannhof [employer] FORMER.GOVERNMENT GUARD Work Phone: [facility] 07-24-2022 10:18-0400 Body temperature 97.81 [degF] Patrica Callow [employer]MER.GOVERNMENT GUARD Work Phone: [facility] 07-24-2022 10:18-0400 Body weight 63.78 kg Patrica Callow [employer]MER.GOVERNMENT GUARD Work Phone: [facility] 07-24-2022 10:18-0400 Diastolic blood pressure 78 mm[Hg] Patrica Callow [employer]MER.GOVERNMENT GUARD Work Phone: [facility] 07-24-2022 10:18-0400 Heart rate 81 /min Patrica Callow [employer]MER.GOVERNMENT GUARD Work Phone: [facility] 07-24-2022 10:18-0400 Respiratory rate 18 /min Patrica Callow [employer]MER.GOVERNMENT GUARD Work Phone: [facility] 07-24-2022 10:18-0400 SaO2% (BldA) [Mass fraction] 99 % Patrica Callow [employer]MER.GOVERNMENT GUARD Work Phone: [facility] 07-24-2022 10:18-0400 Systolic blood pressure 130 mm[Hg] Patrica Callow [employer]MER.GOVERNMENT GUARD Work Phone: [facility] 04-06-2022 09:00-0500 Body weight 61.15 kg Shwetha Kumar MD Work Phone: [facility] 04-06-2022 09:00-0500 Diastolic blood pressure 64 mm[Hg] Shwetha Kumar MD Work Phone: [facility] 04-06-2022 09:00-0500 Heart rate 78 /min Shwetha Kumar MD Work Phone: [facility] 04-06-2022 09:00-0500 Respiratory rate 16 /min Shwetha Kumar MD Work Phone: [facility] 04-06-2022 09:00-0500 Systolic blood pressure 118 mm[Hg] Shwetha Kumar MD Work Phone: [facility] 01-15-2022 10:31-0400 Body temperature 98.01 [degF] Jyothi Rodney APRN.GOVERNMENT GUARD Work Phone: [facility] 01-15-2022 10:31-0400 Body weight 61.6 kg Jyothi Rodney APRN.GOVERNMENT GUARD Work Phone: [facility] 01-15-2022 10:31-0400 Diastolic blood pressure 82 mm[Hg] Jyothi Rondey APRN.GOVERNMENT GUARD Work Phone: [facility] 01-15-2022 10:31-0400 Heart rate 80 /min Jyothi Rodney APRN.GOVERNMENT GUARD Work Phone: [facility] 01-15-2022 10:31-0400 Respiratory rate 18 /min Jyothi Rodney APRN.GOVERNMENT GUARD Work Phone: [facility] 01-15-2022 10:31-0400 SaO2% (BldA) [Mass fraction] 97 % Jyothi Rodney APRN.GOVERNMENT GUARD Work Phone: [facility] 01-15-2022 10:31-0400 Systolic blood pressure 132 mm[Hg] Jyothi Rodney APRN.GOVERNMENT GUARD Work Phone: [facility] Encounters Encounter Date Encounter Type Care Provider Facility Start: 04-06-2023 End: 04-06-2023 ambulatory SHWETHA KUMAR Facility:[facility] Start: 04-06-2023 End: 04-06-2023 Patient encounter procedure Shwetha Kumar MD Work Phone: [facility] Comment on above: Hypertension, essent ial (Primary Dx); Stage 3b chronic kidney disease (HCC); Hyperlipidemia, unspecified hyperlipidemia type; BPPV (benign paroxysmal positional vertigo), unspecified laterality Start: 03-29-2023 End: 03-30-2023 ambulatory HIBERNIA Dickson [facility] Facility:[facility] Start: 10-05-2022 End: 10-05-2022 ambulatory [facility] Facility:[facility] Start: 10-05-2022 End: 10-05-2022 Patient encounter procedure Shwetha Kumar MD Work Phone: [facility] Comment on above: Hypertension, essent ial (Primary Dx); Stage 3b chronic kidney disease (HCC); Hyperlipidemia, unspecified hyperlipidemia type Start: 07-29-2022 End: 07-30-2022 ambulatory HIBERNIA Dickson [facility] Facility:[facility] Start: 07-29-2022 End: 07-29-2022 Patient encounter procedure Hugh Garrett APRN.GOVERNMENT GUARD Work Phone: [facility] Comment on above: Hospital discharge f ollow-up (Primary Dx); BPPV (benign paroxysmal positional vertigo), unspecified laterality Start: 07-24-2022 End: 07-24-2022 ambulatory [facility] Facility:[facility] Start: 07-24-2022 End: 07-24-2022 Patient encounter procedure Patrica Rouse APRN.GOVERNMENT GUARD Work Phone: [facility] Comment on above: Vertigo (Primary Dx) Start: 04-06-2022 End: 04-06-2022 Patient encounter procedure Shwetha Kumar MD Work Phone: [facility] Comment on above: Hypertension, essent ial (Primary Dx); Stage 3b chronic kidney disease (HCC); Hyperlipidemia, unspecified hyperlipidemia type Start: 01-15-2022 End: 01-15-2022 Patient encounter procedure Jyothi Rodney APRN.GOVERNMENT GUARD Work Phone: [facility] Comment on above: Acute midline low ba ck pain without sciatica (Primary Dx) Start: 07-18-2021 Telephone encounter Hugh cha [employer]MER.MARCELLA Work Phone: [facility] Comment on above: Results Start: 07-18-2021 End: 07-18-2021 Subsequent hospital visit by physician Ct [facility] W[facility] (I-Stat) Work Phone: Cat Scan Comment on above: Lung nodules [R91.8] Start: 06-30-2021 End: 06-30-2021 Subsequent hospital visit by physician Xr [facility] Work Phone: Radiology Comment on above: Upper back pain [M54 .9] Procedures Date Procedure Procedure Detail Performing Clinician Start: 07-18-2021 Ct thorax w/o contra st material Hugh Garrett APRN.CNP Work Phone: Start: 06-30-2021 Radex spine thoracic 3 views Hugh Garrett APRN.MARCELLA Work Phone: Plan of Treatment Date Care Activity Detail Author Start: 03-29-2026 Diabetes Screening Diabetes Screenin g [facility] Start: 03-30-2025 DIABETES SCREEN DIABETES SCREEN [facility] Start: 09-29-2024 DIABETES SCREEN DIABETES SCREEN [facility] Start: 04-06-2024 Covid-19 Vaccine () Covid-19 Vaccine () [facility] Comment on above: Postponed from 12/18 (Declined at this time) Start: 03-23-2024 End: 03-23-2024 Patient encounter procedure 03/23/2024 11:00 AM EST Office Visit Family [facility] [address] [place], [place] [id number] Shwetha Kumar MD [address] [place] [id number] 6 mo f/u [facility] Comment on above: 6 mo f/u Start: 12-28-2023 DIABETES SCREEN DIABETES SCREEN [facility] Start: 12-19-2023 Covid-19 Vaccine ( season) Covid-19 Vaccine () [facility] Start: 12-19-2023 Influenza vaccination Influenza Vacc ine (#1) [facility] Start: 10-17-2023 Influenza vaccination Influenza Vacc ine (#1) [facility] Comment on above: Postponed from 12/18 (Declined at this time) Start: 04-19-2023 Advance Directive Discussion Advance Directive Discussion [facility] Start: 04-06-2023 End: 06-06-2023 CBC W Auto Differential panel - Blood CBC + DIFF Lab Routine Stage 3b chronic kidney disease (HCC) Expected: 04/06/2023 (Approximate), Expires: 06/06/2023 [facility] Work Phone: Comment on above: Expected: 04/06/2023 (Approximate), Expires: 06/06/2023 Start: 04-06-2023 End: 06-06-2023 Comprehensive metabolic 2000 panel - Serum or Plasma COMP METABOLIC PANEL Lab Routine Stage 3b chronic kidney disease (HCC) Hyperlipidemia, unspecified hyperlipidemia type Expected: 04/06/2023 (Approximate), Expires: 06/06/2023 [facility] Work Phone: Comment on above: Expected: 04/06/2023 (Approximate), Expires: 06/06/2023 Start: 04-06-2023 COVID-19 VACCINE (4 - Booster for Pfizer series) COVID-19 VACCINE (4 - Booster for Pfizer series) [facility] Comment on above: Postponed from 07/22 (Declined at this time) Start: 04-06-2023 End: 06-06-2023 Lipid 1996 panel - Serum or Plasma LIPID PANEL BASIC Lab Routine Hypertension, essential Hyperlipidemia, unspecified hyperlipidemia type Expected: 04/06/2023 (Approximate), Expires: 06/06/2023 [facility] Work Phone: Comment on above: Expected: 04/06/2023 (Approximate), Expires: 06/06/2023 Start: 04-06-2023 Pneumococcal Vaccine : 65+ (1 of 1 - PCV) Pneumococcal Vaccine: 65+ (1 of 1 - PCV) [facility] Comment on above: Postponed from 12/02 (Declined at this time) Start: 04-06-2023 PNEUMOCOCCAL: 65+ (1 - PCV) PNEUMOCOCCAL: 65+ (1 - PCV) [facility] Comment on above: Postponed from 12/02 (Declined at this time) Start: 04-06-2023 SHINGRIX VACCINE (1 of 2) SHINGRIX VACCINE (1 of 2) [facility] Comment on above: Postponed from 12/02 (Declined at this time) Start: 04-06-2023 Urine microalbumin profile [facility] Comment on above: Postponed from 12/02 (Declined at this time) Start: 12-18-2022 Influenza vaccination INFLUENZA (Sea son Ended) [facility] Start: 10-16-2022 Influenza vaccination INFLUENZA (#1) [facility] Comment on above: Postponed from 12/18 (Declined at this time) Start: 04-19-2022 ADVANCE DIRECTIVE DISCUSSION ADVANCE DIRECTIVE DISCUSSION [facility] Start: 04-19-2022 DEPRESSION ASSESSMENT DEPRESSION ASS ESSMENT [facility] Start: 12-18-2021 Influenza vaccination [facility] Start: 07-22-2021 COVID-19 VACCINE (4 - Booster for Pfizer series) COVID-19 VACCINE (4 - Booster for Pfizer series) [facility] Start: 04-19-2021 ADVANCE DIRECTIVE DISCUSSION ADVANCE DIRECTIVE DISCUSSION [facility] Start: 04-19-2021 DEPRESSION ASSESSMENT DEPRESSION ASS ESSMENT [facility] Start: 2013 RSV Vaccine (1 - 1-d ose 75+ series) RSV Vaccine (1 - 1-dose 75+ series) [facility] Start: 12-03-2003 Pneumococcal Vaccine : 65+ (1 of 1 - PCV) Pneumococcal Vaccine: 65+ (1 of 1 - PCV) [facility] Start: 12-03-2003 PNEUMOCOCCAL: 65+ (1 - PCV) PNEUMOCOCCAL: 65+ (1 - PCV) [facility] Start: 1998 RSV Vaccine (1 - 1-d ose 60+ series) RSV Vaccine (1 - 1-dose 60+ series) [facility] Start: 1988 SHINGRIX VACCINE (1 of 2) SHINGRIX VACCINE (1 of 2) [facility] Start: 1957 Urine microalbumin profile [facility] Start: 1956 Anxiety Screening Anxiety Screening [facility] Start: 1956 Depression Scre[facility] Immunizations Immunization Date Immunization Notes Care Provider Sridhar smart 05-27-2021 COVID-19 vaccine, ag e 12+ yr (PFIZER-BIONTECH - [place] TOP) Ct (I-Stat) Work Phone: [facility] 11-25-2020 COVID-19 vaccine, ag e 12+ yr (PFIZER-BIONTECH - PURPLE TOP) Ct (I-Stat) Work Phone: [facility] 11-01-2020 COVID-19 vaccine, ag e 12+ yr (PFIZER-BIONTECH - PURPLE TOP) Ct (I-Stat) Work Phone: [facility] 02-03-2018 influenza virus vaccine, unspecified formulation Shwetha Kumar MD Work Phone: [facility] Payers Date Payer Category Payer Unknown [facility] [id number] 2007-Present [phone] [address] [address] [place] [address] Indemnity [id number] 2007 Unknown [facility] [id number] 2007-Present [phone] [address] [address] [place] [address] Indemnity [id number] 2007 Unknown [id number] 2003 Medicare MEDICARE MEDICAR E A AND B [id number] 2003-Present [phone] [address] [address] [place] [address] Medicare [id number] 2003 Medicare MEDICARE MEDICAR E A AND B [id number] 2003-Present [phone] [place] [address] Medicare [id number] 2003 Medicare [id number] Social History Date Type Detail Facility Start: 06-14-2017 End: 01-15-2022 Tobacco smoking status NHIS Never smoked tobacco [facility] Start: 06-27-2021 End: 04-06-2023 Alcohol intake Current non-drinker of alcohol (finding) [facility] Start: 1940 Sex Assigned At Not on file [facility] Start: 06-17-2021 End: 01-15-2022 Exposure to SARS-CoV-2 (event) Not sure [facility] Start: 06-14-2017 End: 01-15-2022 Tobacco use and exposure Smokeless tobacco non-user [facility] Start: 03-26-2020 End: 04-06-2023 History of Social function [facility] Work Phone: Start: 03-26-2020 End: 04-06-2023 Tobacco use panel [facility] Work Phone: Adult Depression Screening Assessment 0 [facility] Work Phone: Clinical Notes 06-30-2021 to 04-06-2023 Shwetha Kumar MD - 04/06/2023 9:40 AM Bi Kumar MD - 10/05/2022 1:00 PM Ham Garrett APRN.CNP - 07/29/2022 9:00 AM EDTPatient InstructionsPatient Instructions Note Date & Type Note Facility 04-06-2023 Note HNO ID: [id number] Author: Shwetha Kumar MD Service: ? Author Type: Physician Type: Progress Notes Filed: 04/06/2023 11:05 AM Note Text: Chief Complaint Patient presents with: F/U 6 Month HPI Melissa Jacobo is a 82 year old female who presents here today for 6 month follow up. Here today for her routine 6 month follow up. Drives Gnosticism. No bowel, Gi, or urinary issues. CKD: Monitored with routine labs. HTN: Taking Losartan-HCTZ 100-12.5 once daily. No chest pains, dizziness, or SOB. Will check BP occ at home. Has been around 129-130/68. Vertigo: Denies any issues with vertigo, has been prescribed Meclizine 25 mg tablets in the past. Has not had to use recently. Lipids - Currently on no medication. Denies any regular exercise regimen other than some walking. Tries to watch diet, but admits this is a bad time of year for her. Has glaucoma on regimen for eyes. HM - Declines Flu and Covid vaccine. Past medical history, appointments, medications, allergies reviewed. Previous Medical History PAST MEDICAL HISTORY Diagnosis Date Cataract right eye Glaucoma right eye Previous Surgical History PAST SURGICAL HISTORY Procedure Laterality Date CATARACT EXTRACTION HX Right 07/08/2017 Dr. Erlin [facility] Family History FAMILY HISTORY Problem Relation Age of Onset other (Other) Mother old age other (Other) Father old age Cataract Maternal Grandmother Glaucoma Maternal Grandmother Glaucoma Paternal Grandmother Cataract Paternal Grandmother Patient Allergies ALLERGIES Allergen Reactions Ibuprofen Other: See Comments Severe itching Lisinopril Cough Cough, tired, fatigue and no energy Current Medications Current Outpatient Medications on File Prior to Visit Medication Sig meclizine (ANTIVERT) 25 mg tab losartan-hydroCHLOROthiazide (HYZAAR) 100-12.5 mg per tablet Take 1 tablet by mouth once daily. vit A,C,V-Rqiq-Dxuhpu (PRESERVISION AREDS) 7,160 unit- 113 mg-100 unit tab Take 2 tablets by mouth twice daily with meals. timolol hemihydrate (BETIMOL) 0.5 % ophthalmic solution Use 1 Drop in the right eye once daily. latanoprost (XALATAN) 0.005 % ophthalmic solution Use 1 Drop in the right eye once daily. TO AFFECTED EYE(S) LUTEIN/ZEAXANTHIN (OCUVITE LUTEIN 25 ORAL) Take by mouth. FOLIC ACID/MULTIVIT-MIN/LUTEIN (CENTRUM SILVER ORAL) Take by mouth. aspirin, enteric coated (ASPIRIN, ENTERIC COATED) 81 mg EC tablet Take 81 mg by mouth once daily. No current facility-administered medications on file prior to visit. Social History Social History Tobacco Use Smoking status: Never Smokeless tobacco: Never Substance Use Topics Alcohol use: No Drug use: No EXAM: BP 132/84 (BP Site: Left Arm, BP Position: Sitting, BP Cuff Size: Regular Adult) Pulse 78 Resp 16 Wt 63.6 kg (140 lb 3.2 oz) BMI 26.06 kg/m? General Appearance: Well appearing, alert, in no acute distress, well-hydrated, well nourished.. Lungs: Lungs clear to auscultation. No wheezing, rhonchi, rales.. Heart: RRR without murmur, gallop, or rubs. No ectopy. Health Maintenance List RSV Vaccine(1 - 1-dose 60+ series) Never done Influenza Vaccine(1) due on 12/18/2022 Covid-19 Vaccine(4 - 2022-24 season) due on 12/18/2022 DTaP,Tdap,Td Vaccine(1 - Tdap) due on 04/06/2023 Shingrix Vaccine(1 of 2) due on 04/06/2023 Pneumococcal Vaccine: 65+(1 - PCV) due on 04/06/2023 Diabetes Screening due on 03/29/2026 Advance Directive Discussion Completed Depression Assessment Completed Bone Density Screening Addressed Data reviewed Appointment on 03/29/2023 Component Date Value Cholesterol, Total 03/29/2023 282 (H) Triglyceride 03/29/2023 401 (H) HDL Cholesterol 03/29/2023 39 (L) Non HDL Cholesterol 03/29/2023 243 (H) Fasting Time 03/29/2023 14 VLDL Cholesterol 03/29/2023 TC:HDL Ratio 03/29/2023 7.23 (H) LDL Cholesterol 03/29/2023 LDL:HDL Ratio 03/29/2023 Protein, Total 03/29/2023 6.7 Albumin 03/29/2023 4.4 Calcium, Total 03/29/2023 9.5 Bilirubin, Total 03/29/2023 1.0 Alkaline Phosphatase 03/29/2023 69 AST 03/29/2023 28 ALT 03/29/2023 20 Glucose 03/29/2023 104 (H) BUN 03/29/2023 22 (H) Creatinine 03/29/2023 1.12 (H) Sodium 03/29/2023 141 Potassium 03/29/2023 4.5 Chloride 03/29/2023 105 CO2 03/29/2023 25 Anion Gap 03/29/2023 11 Estimated Glomerular Mathieu* 03/29/2023 49 (L) WBC 03/29/2023 6.86 RBC 03/29/2023 3.88 (L) Hemoglobin 03/29/2023 12.2 Hematocrit 03/29/2023 37.2 MCV 03/29/2023 95.9 MCH 03/29/2023 31.4 MCHC 03/29/2023 32.8 RDW-CV 03/29/2023 12.8 Platelet Count 03/29/2023 352 MPV 03/29/2023 9.1 Neutrophils % 03/29/2023 64.6 Abs Neut 03/29/2023 4.43 Lymphocytes % 03/29/2023 19.1 Abs Lymph 03/29/2023 1.31 Monocytes % 03/29/2023 10.8 Abs Freestone 03/29/2023 0.74 Eosinophils % 03/29/2023 4.2 Abs Eosin 03/29/2023 0.29 Basophils % 03/29/2023 0.9 Abs Baso 03/29/2023 0.06 Immature Granulocytes % 12 (more content not included)... [facility] 04-06-2023 History of Presen t illness Narrative Chief Complaint Patient presents with: F/U 6 Month HPI Melissa Jacobo is a 82 year old female who presents here today for 6 month follow up. Here today for her routine 6 month follow up. Drives Gnosticism. No bowel, Gi, or urinary issues. CKD: Monitored with routine labs. HTN: Taking Losartan-HCTZ 100-12.5 once daily. No chest pains, dizziness, or SOB. Will check BP occ at home. Has been around 129-130/68. Vertigo: Denies any issues with vertigo, has been prescribed Meclizine 25 mg tablets in the past. Has not had to use recently. Lipids - Currently on no medication. Denies any regular exercise regimen other than some walking. Tries to watch diet, but admits this is a bad time of year for her. Has glaucoma on regimen for eyes. HM - Declines Flu and Covid vaccine. Past medical history, appointments, medications, allergies reviewed. Previous Medical History PAST MEDICAL HISTORY Diagnosis Date Cataract right eye Glaucoma right eye Previous Surgical History PAST SURGICAL HISTORY Procedure Laterality Date CATARACT EXTRACTION HX Right 07/08/2017 [facility] [place] Family History FAMILY HISTORY Problem Relation Age of Onset other (Other) Mother old age other (Other) Father old age Cataract Maternal Grandmother Glaucoma Maternal Grandmother Glaucoma Paternal Grandmother Cataract Paternal Grandmother Patient Allergies ALLERGIES Allergen Reactions Ibuprofen Other: See Comments Severe itching Lisinopril Cough Cough, tired, fatigue and no energy Current Medications Current Outpatient Medications on File Prior to Visit Medication Sig meclizine (ANTIVERT) 25 mg tab losartan-hydroCHLOROthiazide (HYZAAR) 100-12.5 mg per tablet Take 1 tablet by mouth once daily. vit A,C,R-Ltnp-Suxxbt (PRESERVISION AREDS) 7,160 unit- 113 mg-100 unit tab Take 2 tablets by mouth twice daily with meals. timolol hemihydrate (BETIMOL) 0.5 % ophthalmic solution Use 1 Drop in the right eye once daily. latanoprost (XALATAN) 0.005 % ophthalmic solution Use 1 Drop in the right eye once daily. TO AFFECTED EYE(S) LUTEIN/ZEAXANTHIN (OCUVITE LUTEIN 25 ORAL) Take by mouth. FOLIC ACID/MULTIVIT-MIN/LUTEIN (CENTRUM SILVER ORAL) Take by mouth. aspirin, enteric coated (ASPIRIN, ENTERIC COATED) 81 mg EC tablet Take 81 mg by mouth once daily. No current facility-administered medications on file prior to visit. Social History Social History Tobacco Use Smoking status: Never Smokeless tobacco: Never Substance Use Topics Alcohol use: No Drug use: No EXAM: BP 132/84 (BP Site: Left Arm, BP Position: Sitting, BP Cuff Size: Regular Adult) Pulse 78 Resp 16 Wt 63.6 kg (140 lb 3.2 oz) BMI 26.06 kg/m General Appearance: Well appearing, alert, in no acute distress, well-hydrated, well nourished.. Lungs: Lungs clear to auscultation. No wheezing, rhonchi, rales.. Heart: RRR without murmur, gallop, or rubs. No ectopy. Health Maintenance List RSV Vaccine(1 - 1-dose 60+ series) Never done Influenza Vaccine(1) due on 12/18/2022 Covid-19 Vaccine(2022-24 season) due on 12/18/2022 DTaP,Tdap,Td Vaccine(1 - Tdap) due on 04/06/2023 Shingrix Vaccine(1 of 2) due on 04/06/2023 Pneumococcal Vaccine: 65+(1 - PCV) due on 04/06/2023 Diabetes Screening due on 03/29/2026 Advance Directive Discussion Completed Depression Assessment Completed Bone Density Screening Addressed Data reviewed Appointment on 03/29/2023 Component Date Value Cholesterol, Total 03/29/2023 282 (H) Triglyceride 03/29/2023 401 (H) HDL Cholesterol 03/29/2023 39 (L) Non HDL Cholesterol 03/29/2023 243 (H) Fasting Time 03/29/2023 14 VLDL Cholesterol 03/29/2023 TC:HDL Ratio 03/29/2023 7.23 (H) LDL Cholesterol 03/29/2023 LDL:HDL Ratio 03/29/2023 Protein, Total 03/29/2023 6.7 Albumin 03/29/2023 4.4 Calcium, Total 03/29/2023 9.5 Bilirubin, Total 03/29/2023 1.0 Alkaline Phosphatase 03/29/2023 69 AST 03/29/2023 28 ALT 03/29/2023 20 Glucose 03/29/2023 104 (H) BUN 03/29/2023 22 (H) Creatinine 03/29/2023 1.12 (H) Sodium 03/29/2023 141 Potassium 03/29/2023 4.5 Chloride 03/29/2023 105 CO2 03/29/2023 25 Anion Gap 03/29/2023 11 Estimated Glomerular Mathieu* 03/29/2023 49 (L) WBC 03/29/2023 6.86 RBC 03/29/2023 3.88 (L) Hemoglobin 03/29/2023 12.2 Hematocrit 03/29/2023 37.2 MCV 03/29/2023 95.9 MCH 03/29/2023 31.4 MCHC 03/29/2023 32.8 RDW-CV 03/29/2023 12.8 Platelet Count 03/29/2023 352 MPV 03/29/2023 9.1 Neutrophils % 03/29/2023 64.6 Abs Neut 03/29/2023 4.43 Lymphocytes % 03/29/2023 19.1 Abs Lymph 03/29/2023 1.31 Monocytes % 03/29/2023 10.8 Abs Freestone 03/29/2023 0.74 Eosinophils % 03/29/2023 4.2 Abs Eosin 03/29/2023 0.29 Basophils % 03/29/2023 0.9 Abs Baso 03/29/2023 0.06 Immature Granulocytes % 03/29/2023 0.4 Abs Immature Gran 03/29/2023 0.03 NRBC 03/29/2023 0.0 Absolute nRBC 03/29/2023 <0.01 Diff Type 03/29/2023 Auto LDL Cholesterol, Direct 03/29/2023 147 (H) VLDL Cholesterol 03/29/2023 96 (H) ASSESSMENT/PLAN: 1. Hypertension, essential - ICD9: 401.9, ICD10: I10 (primary diagnosis) - Controlled - Continue current medications - Recommend home blood pressure monitoring, to bring results to next visit - Encouraged sodium restriction, DASH or Mediterranean diet - Recommend regular aerobic exercise - LOSARTAN 100 MG-HYDROCHLOROTHIAZIDE 12.5 MG TABLET 2. Stage 3b chronic kidney disease (HCC) - ICD9: 585.3, ICD10: N18.32 - Stable - Counseled on avoiding NSAIDs, adequate hydration - Counseled on low sodium diet - Continue to monitor with routine labs 3. Hyperlipidemia, unspecified hyperlipidemia type - ICD9: 272.4, ICD10: E78.5 - Stable, slightly worsening. - Continue monitoring through routine labs - Counseled on healthy diet and regular exercise 4. BPPV (benign paroxysmal positional vertigo), unspecified laterality - ICD9: 386.11, ICD10: H81.10 - Stable, use medication prn. 6 mo f/u, no labs needed at that time. I agree with the Chief Complaint, ROS, and Past Histories independently gathered by the clinical network diagnostic support specialist and the remaining scribed note accurately describes my personal service to the patient. Medical Decision Making: Problems: Moderate: 2+ stable chronic illnesses Data: Unique test result(s) reviewed: 3+ Risk: Moderate: Drug management Medical Decision Making Level: 4 - Moderate Shwetha Kumar MD The documentation for this note was completed by Leah Tian Ma acting as scribe for Shwetha Kumar MD. April 06, 2023 9:32 AM. Leah Tian Ma documented in this encounter [facility] 10-05-2022 Note HNO ID: [id number] Author: Shwetha Kumar MD Service: ? Author Type: Physician Type: Progress Notes Filed: 10/05/2022 1:04 PM Note Text: Chief Complaint Patient presents with: 6 Month Exam HPI Melissa Jacobo is a 81 year old female who presents here today for 6 month follow up. 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 She takes them to doctors appt and grocery shopping. Has 2 great grandchildren that live in [place], [place]. Does not have an advanced directive. HM: Depression screening; denies feeling depressed or hopeless. Denies any bowel, Gi, or urinary issues. No regular exercise but does walk some. She does not do any gardening due to not being able to get back up off the ground. Has a few hanging flower pots. HTN: Taking Hyzaar 100-12.5 mg daily. Denies any chest pains, dizziness, or SOB. Checking BP occ at home. No longer needs the Meclizine, vertigo improved. Has it if needed. CKD: Monitored with routine labs. Past medical history, appointments, medications, allergies reviewed. Previous Medical History PAST MEDICAL HISTORY Diagnosis Date Cataract right eye Glaucoma right eye Previous Surgical History PAST SURGICAL HISTORY Procedure Laterality Date CATARACT EXTRACTION HX Right 07/08/2017 Dr. Kern [facility] Family History FAMILY HISTORY Problem Relation Age of Onset other (Other) Mother old age other (Other) Father old age Cataract Maternal Grandmother Glaucoma Maternal Grandmother Glaucoma Paternal Grandmother Cataract Paternal Grandmother Patient Allergies ALLERGIES Allergen Reactions Ibuprofen Other: See Comments Severe itching Lisinopril Cough Cough, tired, fatigue and no energy Current Medications Current Outpatient Medications on File Prior to Visit Medication Sig meclizine (ANTIVERT) 25 mg tab losartan-hydroCHLOROthiazide (HYZAAR) 100-12.5 mg per tablet Take 1 tablet by mouth once daily. vit A,C,K-Ijhc-Pucdfh (PRESERVISION AREDS) 7,160 unit- 113 mg-100 unit tab Take 2 tablets by mouth twice daily with meals. timolol hemihydrate (BETIMOL) 0.5 % ophthalmic solution Use 1 Drop in the right eye once daily. latanoprost (XALATAN) 0.005 % ophthalmic solution Use 1 Drop in the right eye once daily. TO AFFECTED EYE(S) LUTEIN/ZEAXANTHIN (OCUVITE LUTEIN 25 ORAL) Take by mouth. FOLIC ACID/MULTIVIT-MIN/LUTEIN (CENTRUM SILVER ORAL) Take by mouth. aspirin, enteric coated (ASPIRIN, ENTERIC COATED) 81 mg EC tablet Take 81 mg by mouth once daily. No current facility-administered medications on file prior to visit. Social History Social History Tobacco Use Smoking status: Never Smokeless tobacco: Never Substance Use Topics Alcohol use: No Drug use: No EXAM: BP 122/70 Pulse 68 Resp 16 Wt 63.1 kg (139 lb 1.6 oz) BMI 25.86 kg/m? General Appearance: Well appearing, alert, in no acute distress, well-hydrated, well nourished.. Lungs: Lungs clear to auscultation. No wheezing, rhonchi, rales.. Heart: RRR without murmur, gallop, or rubs. No ectopy. Health Maintenance List ADVANCE DIRECTIVE DISCUSSION due on 04/19/2022 DEPRESSION ASSESSMENT due on 04/19/2022 DTAP,TDAP,TD(1 - Tdap) due on 04/06/2023 SHINGRIX VACCINE(1 of 2) due on 04/06/2023 COVID-19 VACCINE(4 - Booster for Pfizer series) due on 04/06/2023 PNEUMOCOCCAL: 65+(1 - PCV) due on 04/06/2023 INFLUENZA(Season Ended) due on 12/18/2022 DIABETES SCREEN due on 03/30/2025 BONE DENSITY Addressed Data reviewed None ASSESSMENT/PLAN: 1. Hypertension, essential - ICD9: 401.9, ICD10: I10 (primary diagnosis) - Controlled - Continue current medications - LIPID PANEL BASIC 2. Stage 3b chronic kidney disease (HCC) - ICD9: 585.3, ICD10: N18.32 - eGFR: Stable - COMP METABOLIC PANEL - CBC + DIFF 3. Hyperlipidemia, unspecified hyperlipidemia type - ICD9: 272.4, ICD10: E78.5 - Check labs in 6 months - LIPID PANEL BASIC - COMP METABOLIC PANEL Follow up in 6 months with fasting labs prior. I agree with the Chief Complaint, ROS, and Past Histories independently gathered by the clinical network diagnostic support specialist and the remaining scribed note accurately describes my personal service to the patient. Medical Decision Making: Problems: Low: Stable chronic illness Data: Unique test(s) ordered: 3+ Risk: Moderate: Drug management Medical Decision Making Level: 4 - Moderate Shwetha Kumar MD The documentation for this note was completed by Manju Hollingsworth Ma acting as scribe for Shwetha Kumar MD. October 05, 2022 12:52 PM. Manju Hollingsworth Ma [facility] 10-05-2022 History of Presen t illness Narrative Chief Complaint Patient presents with: 6 Month Exam HPI Melissa Jacobo is a 81 year old female who presents here today for 6 month follow up. 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 She takes them to doctors appt and grocery shopping. Has 2 great grandchildren that live in [place], [place]. Does not have an advanced directive. HM: Depression screening; denies feeling depressed or hopeless. Denies any bowel, Gi, or urinary issues. No regular exercise but does walk some. She does not do any gardening due to not being able to get back up off the ground. Has a few hanging flower pots. HTN: Taking Hyzaar 100-12.5 mg daily. Denies any chest pains, dizziness, or SOB. Checking BP occ at home. No longer needs the Meclizine, vertigo improved. Has it if needed. CKD: Monitored with routine labs. Past medical history, appointments, medications, allergies reviewed. Previous Medical History PAST MEDICAL HISTORY Diagnosis Date Cataract right eye Glaucoma right eye Previous Surgical History PAST SURGICAL HISTORY Procedure Laterality Date CATARACT EXTRACTION HX Right 07/08/2017 [facility] [place] Family History FAMILY HISTORY Problem Relation Age of Onset other (Other) Mother old age other (Other) Father old age Cataract Maternal Grandmother Glaucoma Maternal Grandmother Glaucoma Paternal Grandmother Cataract Paternal Grandmother Patient Allergies ALLERGIES Allergen Reactions Ibuprofen Other: See Comments Severe itching Lisinopril Cough Cough, tired, fatigue and no energy Current Medications Current Outpatient Medications on File Prior to Visit Medication Sig meclizine (ANTIVERT) 25 mg tab losartan-hydroCHLOROthiazide (HYZAAR) 100-12.5 mg per tablet Take 1 tablet by mouth once daily. vit A,C,U-Slvj-Uhfcuj (PRESERVISION AREDS) 7,160 unit- 113 mg-100 unit tab Take 2 tablets by mouth twice daily with meals. timolol hemihydrate (BETIMOL) 0.5 % ophthalmic solution Use 1 Drop in the right eye once daily. latanoprost (XALATAN) 0.005 % ophthalmic solution Use 1 Drop in the right eye once daily. TO AFFECTED EYE(S) LUTEIN/ZEAXANTHIN (OCUVITE LUTEIN 25 ORAL) Take by mouth. FOLIC ACID/MULTIVIT-MIN/LUTEIN (CENTRUM SILVER ORAL) Take by mouth. aspirin, enteric coated (ASPIRIN, ENTERIC COATED) 81 mg EC tablet Take 81 mg by mouth once daily. No current facility-administered medications on file prior to visit. Social History Social History Tobacco Use Smoking status: Never Smokeless tobacco: Never Substance Use Topics Alcohol use: No Drug use: No EXAM: BP 122/70 Pulse 68 Resp 16 Wt 63.1 kg (139 lb 1.6 oz) BMI 25.86 kg/m General Appearance: Well appearing, alert, in no acute distress, well-hydrated, well nourished.. Lungs: Lungs clear to auscultation. No wheezing, rhonchi, rales.. Heart: RRR without murmur, gallop, or rubs. No ectopy. Health Maintenance List ADVANCE DIRECTIVE DISCUSSION due on 04/19/2022 DEPRESSION ASSESSMENT due on 04/19/2022 DTAP,TDAP,TD(1 - Tdap) due on 04/06/2023 SHINGRIX VACCINE(1 of 2) due on 04/06/2023 COVID-19 VACCINE(4 - Booster for Pfizer series) due on 04/06/2023 PNEUMOCOCCAL: 65+(1 - PCV) due on 04/06/2023 INFLUENZA(Season Ended) due on 12/18/2022 DIABETES SCREEN due on 03/30/2025 BONE DENSITY Addressed Data reviewed None ASSESSMENT/PLAN: 1. Hypertension, essential - ICD9: 401.9, ICD10: I10 (primary diagnosis) - Controlled - Continue current medications - LIPID PANEL BASIC 2. Stage 3b chronic kidney disease (HCC) - ICD9: 585.3, ICD10: N18.32 - eGFR: Stable - COMP METABOLIC PANEL - CBC + DIFF 3. Hyperlipidemia, unspecified hyperlipidemia type - ICD9: 272.4, ICD10: E78.5 - Check labs in 6 months - LIPID PANEL BASIC - COMP METABOLIC PANEL Follow up in 6 months with fasting labs prior. I agree with the Chief Complaint, ROS, and Past Histories independently gathered by the clinical network diagnostic support specialist and the remaining scribed note accurately describes my personal service to the patient. Medical Decision Making: Problems: Low: Stable chronic illness Data: Unique test(s) ordered: 3+ Risk: Moderate: Drug management Medical Decision Making Level: 4 - Moderate Shwetha Kumar MD The documentation for this note was completed by Manju Hollingsworth Ma acting as scribe for Shwetha Kumar MD. October 05, 2022 12:52 PM. Manju Hollingsworth Ma documented in this encounter [facility] 07-29-2022 Note HNO ID: [id number] Author: Hugh Garrett APRN.GOVERNMENT GUARD Service: ? Author Type: Nurse Practitioner Type: Progress Notes Filed: 07/29/2022 9:25 AM Note Text: This is a 81 year old female who presents today with: Patient presents with: Follow Up: ER follow up for vertigo HISTORY OF PRESENT ILLNESS: Melissa Jacobo is a 81 year old female. Patient presents with: Follow Up: ER follow up for vertigo HOSPITAL/ER FOLLOW UP: Reason for visit: Dizziness Which facility: [facility] ER Date of visit: 07/24/2022 Diagnosis: Peripheral vertigo Testing done: Cromona-Hallpike was positive on the right side Treatment given: Prescription given for meclizine 25 mg chewable, 3 times daily as needed for dizziness. At home exercises given to help with BPPV symptoms. Current symptoms: Symptoms have improved. Went to ENT, had ear cerumen removed. Has not needed Meclizine since Wednesday. Feeling well. PAST MEDICAL HISTORY: PAST MEDICAL HISTORY Diagnosis Date Cataract right eye Glaucoma right eye PAST SURGICAL HISTORY Procedure Laterality Date CATARACT EXTRACTION HX Right 07/08/2017 Dr. Erlin [facility] ALLERGIES Ibuprofen and Lisinopril MEDICATIONS Current Outpatient Medications Medication Sig losartan-hydroCHLOROthiazide (HYZAAR) 100-12.5 mg per tablet Take 1 tablet by mouth once daily. vit A,C,P-Yftl-Eryafv (PRESERVISION AREDS) 7,160 unit- 113 mg-100 unit tab Take 2 tablets by mouth twice daily with meals. timolol hemihydrate (BETIMOL) 0.5 % ophthalmic solution Use 1 Drop in the right eye once daily. latanoprost (XALATAN) 0.005 % ophthalmic solution Use 1 Drop in the right eye once daily. TO AFFECTED EYE(S) LUTEIN/ZEAXANTHIN (OCUVITE LUTEIN 25 ORAL) Take by mouth. FOLIC ACID/MULTIVIT-MIN/LUTEIN (CENTRUM SILVER ORAL) Take by mouth. aspirin, enteric coated (ASPIRIN, ENTERIC COATED) 81 mg EC tablet Take 81 mg by mouth once daily. No current facility-administered medications for this visit. FAMILY HISTORY Problem Relation Age of Onset other (Other) Mother old age other (Other) Father old age Cataract Maternal Grandmother Glaucoma Maternal Grandmother Glaucoma Paternal Grandmother Cataract Paternal Grandmother Social History Tobacco Use Smoking status: Never Smokeless tobacco: Never Substance Use Topics Alcohol use: No Drug use: No REVIEW OF SYSTEMS GENERAL: No weight loss, malaise or fevers/chills HEENT: Negative for frequent or significant headaches, No changes in hearing or vision. NECK: Negative for lumps, goiter, pain and significant neck swelling RESPIRATORY: Negative for cough, hemoptysis, wheezing, dyspnea or shortness of breath CARDIOVASCULAR: Negative for chest pain, leg swelling, orthopnea, or palpitations GI: No nausea, vomiting, or diarrhea/constipation. No hematochezia/melena. No heartburn or reflux symptoms. : No history of dysuria, frequency or incontinence MUSCULOSKELETAL: Negative for joint pain or swelling. SKIN: Negative for lesions, rash, and itching ENDOCRINE: Negative for cold or heat intolerance, polyuria, polydipsia and goiter NEURO: No history of headaches, syncope, paralysis, seizures or tremors MOOD: Negative for depression, anxiety, or suicidal ideation. EXAM: BP 126/74 Pulse 75 Resp 16 Wt 63 kg (139 lb) SpO2 97% BMI 25.84 kg/m? PHYSICAL EXAM: General Appearance: Well appearing, alert, in no acute distress, well-hydrated, well nourished. Skin: Skin color, texture, turgor normal, no suspicious rashes or lesions. Head: Normocephalic, no masses, lesions, tenderness or abnormalities. Eyes: Anicteric sclera. Pupils are equally round and reactive to light. Extraocular movements are intact. Lungs: Lungs clear to auscultation. No wheezing, rhonchi, rales. Heart: RRR without murmur, gallop, or rubs. No ectopy. Extremities: No deformities, edema, skin discoloration, clubbing or cyanosis. Good capillary refill. Musculoskeletal: No joint swelling, deformity, or tenderness. Peripheral Pulses: Normal, Capillary refill <2secs, strong peripheral pulses, Pulses palpable. Neurologic: Gait normal. Sensation grossly intact. ASSESSMENT/PLAN: 1. Hospital discharge follow-up - ICD9: V67.59, ICD10: Z09 (primary diagnosis) - Doing well since hospital discharge. 2. BPPV (benign paroxysmal positional vertigo), unspecified laterality - ICD9: 386.11, ICD10: H81.10 - Symptoms have resolved. - Recommend at home exercises if symptoms recur. - May use meclizine as needed. - Keep scheduled appointments with ENT. Follow-up as needed or sooner if symptoms get worse or do not improve. Discussed treatment plan and patient voices understanding. Patient's questions answered appropriately. Medications and potential side effects were discussed and patient voices understanding. Hugh Garrett APRN.GOVERNMENT GUARD This note was partially generated using [employer] voice recognition system. Note was reviewed for accuracy. (more content not included)... [facility] 07-29-2022 History of Presen t illness Narrative This is a 81 year old female who presents today with: Patient presents with: Follow Up: ER follow up for vertigo HISTORY OF PRESENT ILLNESS: Melissa Jacobo is a 81 year old female. Patient presents with: Follow Up: ER follow up for vertigo HOSPITAL/ER FOLLOW UP: Reason for visit: Dizziness Which facility: [facility] ER Date of visit: 07/24/2022 Diagnosis: Peripheral vertigo Testing done: Cromona-Hallpike was positive on the right side Treatment given: Prescription given for meclizine 25 mg chewable, 3 times daily as needed for dizziness. At home exercises given to help with BPPV symptoms. Current symptoms: Symptoms have improved. Went to ENT, had ear cerumen removed. Has not needed Meclizine since Wednesday. Feeling well. PAST MEDICAL HISTORY: PAST MEDICAL HISTORY Diagnosis Date Cataract right eye Glaucoma right eye PAST SURGICAL HISTORY Procedure Laterality Date CATARACT EXTRACTION HX Right 07/08/2017 Dr. Kern [facility] ALLERGIES Ibuprofen and Lisinopril MEDICATIONS Current Outpatient Medications Medication Sig losartan-hydroCHLOROthiazide (HYZAAR) 100-12.5 mg per tablet Take 1 tablet by mouth once daily. vit A,C,X-Yqmt-Agmmcx (PRESERVISION AREDS) 7,160 unit- 113 mg-100 unit tab Take 2 tablets by mouth twice daily with meals. timolol hemihydrate (BETIMOL) 0.5 % ophthalmic solution Use 1 Drop in the right eye once daily. latanoprost (XALATAN) 0.005 % ophthalmic solution Use 1 Drop in the right eye once daily. TO AFFECTED EYE(S) LUTEIN/ZEAXANTHIN (OCUVITE LUTEIN 25 ORAL) Take by mouth. FOLIC ACID/MULTIVIT-MIN/LUTEIN (CENTRUM SILVER ORAL) Take by mouth. aspirin, enteric coated (ASPIRIN, ENTERIC COATED) 81 mg EC tablet Take 81 mg by mouth once daily. No current facility-administered medications for this visit. FAMILY HISTORY Problem Relation Age of Onset other (Other) Mother old age other (Other) Father old age Cataract Maternal Grandmother Glaucoma Maternal Grandmother Glaucoma Paternal Grandmother Cataract Paternal Grandmother Social History Tobacco Use Smoking status: Never Smokeless tobacco: Never Substance Use Topics Alcohol use: No Drug use: No REVIEW OF SYSTEMS GENERAL: No weight loss, malaise or fevers/chills HEENT: Negative for frequent or significant headaches, No changes in hearing or vision. NECK: Negative for lumps, goiter, pain and significant neck swelling RESPIRATORY: Negative for cough, hemoptysis, wheezing, dyspnea or shortness of breath CARDIOVASCULAR: Negative for chest pain, leg swelling, orthopnea, or palpitations GI: No nausea, vomiting, or diarrhea/constipation. No hematochezia/melena. No heartburn or reflux symptoms. : No history of dysuria, frequency or incontinence MUSCULOSKELETAL: Negative for joint pain or swelling. SKIN: Negative for lesions, rash, and itching ENDOCRINE: Negative for cold or heat intolerance, polyuria, polydipsia and goiter NEURO: No history of headaches, syncope, paralysis, seizures or tremors MOOD: Negative for depression, anxiety, or suicidal ideation. EXAM: BP 126/74 Pulse 75 Resp 16 Wt 63 kg (139 lb) SpO2 97% BMI 25.84 kg/m PHYSICAL EXAM: General Appearance: Well appearing, alert, in no acute distress, well-hydrated, well nourished. Skin: Skin color, texture, turgor normal, no suspicious rashes or lesions. Head: Normocephalic, no masses, lesions, tenderness or abnormalities. Eyes: Anicteric sclera. Pupils are equally round and reactive to light. Extraocular movements are intact. Lungs: Lungs clear to auscultation. No wheezing, rhonchi, rales. Heart: RRR without murmur, gallop, or rubs. No ectopy. Extremities: No deformities, edema, skin discoloration, clubbing or cyanosis. Good capillary refill. Musculoskeletal: No joint swelling, deformity, or tenderness. Peripheral Pulses: Normal, Capillary refill <2secs, strong peripheral pulses, Pulses palpable. Neurologic: Gait normal. Sensation grossly intact. ASSESSMENT/PLAN: 1. Hospital discharge follow-up - ICD9: V67.59, ICD10: Z09 (primary diagnosis) - Doing well since hospital discharge. 2. BPPV (benign paroxysmal positional vertigo), unspecified laterality - ICD9: 386.11, ICD10: H81.10 - Symptoms have resolved. - Recommend at home exercises if symptoms recur. - May use meclizine as needed. - Keep scheduled appointments with ENT. Follow-up as needed or sooner if symptoms get worse or do not improve. Discussed treatment plan and patient voices understanding. Patient's questions answered appropriately. Medications and potential side effects were discussed and patient voices understanding. Hugh Garrett APRN.CNP This note was partially generated using [employer] voice recognition system. Note was reviewed for accuracy. There may be minor misspellings or grammar miscues with [employer] voice recognition. documented in this encounter [facility] 07-29-2022 Instructions Hugh Garrett APRN.CNP - 07/29/2022 8:55 AM EDT Images from the original note were not included. Recommend at home exercises as needed. Keep scheduled appointments with ENT May use meclizine as needed for dizziness. Follow up as needed. Benign Paroxysmal Positional Vertigo (BPPV) What is BPPV? Benign Paroxysmal Positional Vertigo (BPPV) is an inner ear disorder in which changes to the position of the head, such as tipping the head backward, lead to sudden vertigo -- a feeling that the room is spinning. Vertigo can vary in intensity from mild to severe and usually lasts only a few minutes. It may be accompanied by other symptoms, including dizziness lightheadedness a sense of imbalance nausea vomiting Anatomy of the right inner ear. Particle repositioning therapy moves the otoconia out of the semicircular canals and into the utricle where they dissolve naturally. BPPV is not a sign of a serious problem, and it usually disappears on its own within 6 weeks of the first episode. However, the symptoms of BPPV can be very frightening and may be dangerous, especially in older individuals. The unsteadiness associated with BPPV can lead to falls. About half of all people over age 65 experience an episode of BPPV, and falls are a leading cause of fractures in this age-range. What causes BPPV? BPPV develops when calcium carbonate crystals, which are known as otoconia, shift into and become trapped within the semicircular canals (one of the vestibular organs of the inner ear that controls balance). The otoconia make up a normal part of the structure of the utricle, a vestibular organ next to the semicircular canals. (see illustration to the right.) In the utricle, the otoconia may be loosened as a result of injury, infection, or age, and they land in a sac -- the utricle -- where they are naturally dissolved. However, otoconia in the semicircular canals will not dissolve. As a person s head position changes, the otoconia begin to roll around and push on the tiny hairs that line the semicircular canals. Those hairs act as sensors to give the brain information about balance. Vertigo develops when the hairs are stimulated by the rolling otoconia. What head positions trigger BPPV? Movements that can trigger an episode of BPPV include rolling over or sitting up in bed, bending the head forward to look down, or tipping the head backward. In most people, only a single ear is affected by BPPV, although both ears may be involved on occasion. How is BPPV diagnosed and treated? With advances in medical technology, BPPV can easily be diagnosed and treated. The diagnosis can usually be made in the office based on medical history and a physical exam. Treatment also involves a short, simple in-office procedure known as the particle repositioning maneuver. (See addendum below.) How can I identify the affected side? Steps to determine affected side: Sit on bed so that if you lie down, your head hangs slightly over the end of the bed. Turn head to the right and lie back quickly. Wait 1 minute. If you feel dizzy, then the right ear is your affected ear. If no dizziness occurs, sit up. Wait 1 minute. Turn head to the left and lie back quickly. Wait 1 minute. If you feel dizzy, then the left ear is your affected ear. Right position Left position How successful is the treatment? A single particle repositioning procedure is effective in treating about 80% to 90% of cases of BPPV. Additional exercise or repositioning maneuvers may be needed if symptoms persist. Can BPPV recur? If so, what can I do? A new episode of BPPV can develop after successful treatment -- on average there is a 15 percent rate of recurrence each year. However, it may be possible to treat recurrent BPPV at home by performing a series of movements at the time an episode occurs. Patients will receive information on ways to handle recurrences on their own or they can work with a physical therapist to develop a plan. In general, if you wake up with positional vertigo, slowly move into the [id number] position and wait for a minute. Next, slowly move into a face-down position and slide to the foot of the bed. Keep your head down until you reach the end of the bed and are kneeling or standing on the floor. Slowly bring your head backward into an upright position. Hold on to the bed at all times. Another method is to sit toward the foot of the bed, leaving enough room to lay back with your head resting comfortably at the end of the bed, slightly extended. Be careful not to overextend your neck, as this may aggravate existing neck problems. If your symptoms are severe, you may need assistance to complete the maneuver. Follow the same steps as described in the boxed instructions on the next page. Without treatment, the symptoms of BPPV may worsen. However, with time, the otoconia dissolve on their own, which is usually within 6 weeks. Until the time the otoconia dissolve on their own, the number and severity of episodes may be reduced simply by paying careful attention to head position. In addition, anti-motion sickness drugs can be given to control nausea. However, before drugs are taken, it is usually best to try the particle repositioning procedure first. It is a very safe and rapid way to relieve symptoms and reduce the chance for falls. Medications should not be taken for a long period of time. ADDENDUM Particle repositioning procedure: [id number]-[id number] instructions The particle repositioning procedure takes about 15 minutes to complete and involves a series of physical movements that change the position of the head and body. These actions shift the otoconia out of the semicircular canals and back into their proper location in the utricle. The particle repositioning procedure begins with the patient is sitting up and then lying down on a treatment table. The procedure is very easy to perform. Patients should wear comfortable clothing that will allow them to move freely. Hold each of the following positions for 1 to 2 minutes. Step 1: Turn your head toward your affected ear. Step 2: Lay back quickly. Hold. Step 3: Keep your head back against the bed and turn it toward the good ear. Hold. Step 4: Roll onto your side with your good ear down. Your nose should be turned toward the floor. Hold. Step 5: Sit up, keeping your chin tucked in toward your shoulder. Hold. When you end, you should be sitting over the side of your bed so your feet touch the floor. Step 6: Follow your post-particle repositioning instructions. BPPV: Glossary of Terms Semicircular canals: These structures act like a gyroscope, with canals positioned in three dimensions -- upward, downward, and horizontal. Together, the canals send signals to the brain about the rotation/positioning of the head (for example, when you bend over or spin around.) Cupula: Detects the flow of fluid within the semicircular canals. The flow of fluid gives the body a sense of motion. Utricle: An organ located in the inner ear that helps control balance. The utricle contains hair cells, which are covered with otoconia. The otoconia sway with gravity, sending signals to the brain about the position of the head and body (upright, tilted, etc). Otoconia: The tiny calcium crystal particles that become dislodged from within the utricle (where they can dissolve) and move into the semicircular canals (where they can t dissolve). Cochlea: The 'snail-shell' sense organ of the inner ear that translates sound into nerve impulses and sent to the brain. References Jenny PALMA, Itz LB. Gonzalez NELSON. Peripheral Vestibular Disorders. In: [facility], 3-Volume Set. [place]; 2014. Gemma Briones. Benign Paroxysmal Positional Vertigo (BPPV): History, Pathophysiology, Office Treatment and Future Directions. International Journal of Otolaryngology. 2011;2011:194655. Alda JS, Skye DS. Clinical practice. Benign paroxysmal positional vertigo. N Engl J Med. 2014 Jul 06;370(12):1138-47. Travon Yeager DD, Vincent Corey, Pablo REHMAN. The Head and Neck. In: Travon Yeager DD, Vincent Corey, Pablo REHMAN. eds. [place] s Diagnostic Examination, 10e. [place], [place]: [facility]; 2015. Copyright 5666-4426 The [facility]. All rights reserved This information is provided by the [facility] and is not intended to replace the medical advice of your doctor or health care provider. Please consult your health care provider for advice about a specific medical condition. For additional health information, please contact the Center for Consumer Health Information at the [facility] or toll-free extension [phone]. If you prefer, you may visit [email or web address] or [email or web address] . This document was last reviewed on: 2014 documented in this encounter [facility] 07-24-2022 Note HNO ID: [id number] Author: Genna Kang LPN Service: ? Author Type: ? Type: Progress Notes Filed: 07/24/2022 10:56 AM Note Text: Ambulatory Ear Lavage Pre-treatment: Warm water Treatment: Both ears Equipment and Irrigation solution and Volume used: Single use syringe with single use irrigation tip Return flow appearance: Other No debris seen, clear return. Patient tolerated procedure: yes Post-treatment: Post Irrigation Post-treatment: Ear Canal/Tympanic membrane assessed by TOMASZ Rouse. Genna Kang LPN [facility] 07-24-2022 Note HNO ID: [id number] Author: Patrica Rouse APRN.GOVERNMENT GUARD Service: ? Author Type: Nurse Practitioner Type: Progress Notes Filed: 07/24/2022 10:56 AM Note Text: Subjective HPI Melissa presents today for complaint of dizziness. She states that last Wednesday she felt dizzy and then felt well until today. She woke up feeling very dizzy, she states the room is spinning when she gets up or moves her head in any direction. She wears hearing aides. She has hx of htn Review of Systems Neurological: Positive for dizziness. Negative for tingling, tremors, sensory change, speech change, focal weakness, seizures, loss of consciousness, weakness and headaches. All other systems reviewed and are negative. Objective Physical Exam Vitals and nursing note reviewed. Constitutional: General: She is not in acute distress. Appearance: Normal appearance. She is not toxic-appearing. HENT: Head: Normocephalic and atraumatic. Right Ear: There is impacted cerumen. Nose: Nose normal. Mouth/Throat: Mouth: Mucous membranes are dry. Eyes: Pupils: Pupils are equal, round, and reactive to light. Cardiovascular: Rate and Rhythm: Normal rate and regular rhythm. Pulses: Normal pulses. Heart sounds: Normal heart sounds. Pulmonary: Effort: Pulmonary effort is normal. Breath sounds: Normal breath sounds. Abdominal: General: Abdomen is flat. Palpations: Abdomen is soft. Genitourinary: General: Normal vulva. Musculoskeletal: General: Normal range of motion. Cervical back: Normal range of motion. Skin: General: Skin is warm and dry. Neurological: General: No focal deficit present. Mental Status: She is alert and oriented to person, place, and time. Mental status is at baseline. GCS: GCS eye subscore is 4. GCS verbal subscore is 5. GCS motor subscore is 6. Cranial Nerves: No cranial nerve deficit. Sensory: No sensory deficit. Motor: No weakness. Coordination: Coordination abnormal. Gait: Gait abnormal. Deep Tendon Reflexes: Reflexes normal. Psychiatric: Mood and Affect: Mood normal. Behavior: Behavior normal. ASSESSMENT/PLAN: 1. Vertigo - ICD9: 780.4, ICD10: R42 Report to ED due to vertigo Patrica Rouse APRN.[facility] 07-24-2022 History of Presen t illness Narrative Ambulatory Ear Lavage Pre-treatment: Warm water Treatment: Both ears Equipment and Irrigation solution and Volume used: Single use syringe with single use irrigation tip Return flow appearance: Other No debris seen, clear return. Patient tolerated procedure: yes Post-treatment: Post Irrigation Post-treatment: Ear Canal/Tympanic membrane assessed by TOMASZ Rouse. Genna Kang LPN Subjective HPI Melissa presents today for complaint of dizziness. She states that last Wednesday she felt dizzy and then felt well until today. She woke up feeling very dizzy, she states the room is spinning when she gets up or moves her head in any direction. She wears hearing aides. She has hx of htn Review of Systems Neurological: Positive for dizziness. Negative for tingling, tremors, sensory change, speech change, focal weakness, seizures, loss of consciousness, weakness and headaches. All other systems reviewed and are negative. Objective Physical Exam Vitals and nursing note reviewed. Constitutional: General: She is not in acute distress. Appearance: Normal appearance. She is not toxic-appearing. HENT: Head: Normocephalic and atraumatic. Right Ear: There is impacted cerumen. Nose: Nose normal. Mouth/Throat: Mouth: Mucous membranes are dry. Eyes: Pupils: Pupils are equal, round, and reactive to light. Cardiovascular: Rate and Rhythm: Normal rate and regular rhythm. Pulses: Normal pulses. Heart sounds: Normal heart sounds. Pulmonary: Effort: Pulmonary effort is normal. Breath sounds: Normal breath sounds. Abdominal: General: Abdomen is flat. Palpations: Abdomen is soft. Genitourinary: General: Normal vulva. Musculoskeletal: General: Normal range of motion. Cervical back: Normal range of motion. Skin: General: Skin is warm and dry. Neurological: General: No focal deficit present. Mental Status: She is alert and oriented to person, place, and time. Mental status is at baseline. GCS: GCS eye subscore is 4. GCS verbal subscore is 5. GCS motor subscore is 6. Cranial Nerves: No cranial nerve deficit. Sensory: No sensory deficit. Motor: No weakness. Coordination: Coordination abnormal. Gait: Gait abnormal. Deep Tendon Reflexes: Reflexes normal. Psychiatric: Mood and Affect: Mood normal. Behavior: Behavior normal. ASSESSMENT/PLAN: 1. Vertigo - ICD9: 780.4, ICD10: R42 Report to ED due to vertigo Patrica Rouse APRN.GOVERNMENT GUARD documented in this encounter [facility] 04-06-2022 History of Presen t illness Narrative Chief Complaint Patient presents with: F/U 6 Month HPI Melissa Jacobo is a 81 year old female who presents here today for a 6 month follow up. Pt here today for her routine 6 month follow up. HTN - Checks BP at home when she thinks about it. States BP is around 130/60's. She denies any chest pain, sob or dizziness. On current regimen of Hyzaar 100-12.5 mg once daily. Lipids - Currently on no medication, tries to watch diet. Not so good during winter months. Walks for exercise. Back pain - Intermittent issues of back pain. Seen in [facility] on 01/15/22. Notes nothing since that time. 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 Bothersome intermittently. Was previously able to wear rings, but now not able to wear her rings due to not being able to get over her knuckles. States mainly her ring finger and thumb, bother her the most. Some stiff and soreness. HM - Declines Flu,Pneumonia, Shingles, Tdap, Covid (further vaccines) and Depression. Past medical history, appointments, medications, allergies reviewed. Previous Medical History PAST MEDICAL HISTORY Diagnosis Date Cataract right eye Glaucoma right eye Previous Surgical History PAST SURGICAL HISTORY Procedure Laterality Date CATARACT EXTRACTION HX Right 07/08/2017 [facility] [place] Family History FAMILY HISTORY Problem Relation Age of Onset other (Other) Mother old age other (Other) Father old age Cataract Maternal Grandmother Glaucoma Maternal Grandmother Glaucoma Paternal Grandmother Cataract Paternal Grandmother Patient Allergies ALLERGIES Allergen Reactions Ibuprofen Other: See Comments Severe itching Lisinopril Cough Cough, tired, fatigue and no energy Current Medications Current Outpatient Medications on File Prior to Visit Medication Sig Losartan-hydroCHLOROthiazide (HYZAAR) 100-12.5 mg per tablet Take 1 tablet by mouth once daily. vit A,C,B-Wdtc-Vdmllq (PRESERVISION AREDS) 7,160 unit- 113 mg-100 unit tab Take 2 tablets by mouth twice daily with meals. timolol hemihydrate (BETIMOL) 0.5 % ophthalmic solution Use 1 Drop in the right eye once daily. latanoprost (XALATAN) 0.005 % ophthalmic solution Use 1 Drop in the right eye once daily. TO AFFECTED EYE(S) LUTEIN/ZEAXANTHIN (OCUVITE LUTEIN 25 ORAL) Take by mouth. FOLIC ACID/MULTIVIT-MIN/LUTEIN (CENTRUM SILVER ORAL) Take by mouth. aspirin, enteric coated (ASPIRIN, ENTERIC COATED) 81 mg EC tablet Take 81 mg by mouth once daily. No current facility-administered medications on file prior to visit. Social History Social History Tobacco Use Smoking status: Never Smokeless tobacco: Never Substance Use Topics Alcohol use: No Drug use: No EXAM: BP 118/64 (BP Site: Left Arm, BP Position: Sitting, BP Cuff Size: Regular Adult) Pulse 78 Resp 16 Wt 61.1 kg (134 lb 12.8 oz) BMI 25.06 kg/m General Appearance: Well appearing, alert, in no acute distress, well-hydrated, well nourished.. Lungs: Lungs clear to auscultation. No wheezing, rhonchi, rales.. Heart: RRR without murmur, gallop, or rubs. No ectopy. Health Maintenance List DTAP,TDAP,TD(1 - Tdap) Never done SHINGRIX VACCINE(1 of 2) Never done PNEUMOCOCCAL: 65+(1 - PCV) Never done DEPRESSION ASSESSMENT Never done COVID-19 VACCINE(4 - Booster for Pfizer series) due on 07/22/2021 INFLUENZA(1) due on 12/18/2021 DIABETES SCREEN due on 09/29/2024 ADVANCE DIRECTIVE DISCUSSION Completed BONE DENSITY Addressed Data reviewed Appointment on 03/30/2022 Component Date Value WBC 03/30/2022 6.11 RBC 03/30/2022 3.87 (A) Hemoglobin 03/30/2022 11.9 Hematocrit 03/30/2022 37.4 MCV 03/30/2022 96.6 MCH 03/30/2022 30.7 MCHC 03/30/2022 31.8 RDW-CV 03/30/2022 12.8 Platelet Count 03/30/2022 318 MPV 03/30/2022 9.9 Neut% 03/30/2022 57.1 Abs Neut 03/30/2022 3.49 Lymph% 03/30/2022 23.2 Abs Lymph 03/30/2022 1.42 Freestone% 03/30/2022 12.8 Abs Freestone 03/30/2022 0.78 Eosin% 03/30/2022 5.6 Abs Eosin 03/30/2022 0.34 Baso% 03/30/2022 1.1 Abs Baso 03/30/2022 0.07 Immature Gran % 03/30/2022 0.2 Abs Immature Gran 03/30/2022 <0.03 NRBC 03/30/2022 0.0 Absolute nRBC 03/30/2022 <0.01 Diff Type 03/30/2022 Auto Protein, Total 03/30/2022 6.9 Albumin 03/30/2022 4.2 Calcium, Total 03/30/2022 9.9 Bilirubin, Total 03/30/2022 1.0 Alkaline Phosphatase 03/30/2022 72 AST 03/30/2022 29 ALT 03/30/2022 18 Glucose 03/30/2022 108 (A) BUN 03/30/2022 26 (A) Creatinine 03/30/2022 1.16 (A) Sodium 03/30/2022 140 Potassium 03/30/2022 5.3 (A) Chloride 03/30/2022 105 CO2 03/30/2022 25 Anion Gap 03/30/2022 10 Estimated Glomerular Mathieu* 03/30/2022 47 (A) Cholesterol, Total 03/30/2022 277 (A) Triglyceride 03/30/2022 293 (A) HDL Cholesterol 03/30/2022 43 Non HDL Cholesterol 03/30/2022 234 (A) Fasting Time 03/30/2022 12 VLDL Cholesterol 03/30/2022 59 (A) TC:HDL Ratio 03/30/2022 6.44 (A) LDL Cholesterol 03/30/2022 175 (A) LDL:HDL Ratio 03/30/2022 4.07 (A) ASSESSMENT/PLAN: 1. Hypertension, essential - ICD9: 401.9, ICD10: I10 (primary diagnosis) - good control - Continue current medication(s) - Recommended regular aerobic exercise. - Recommend home blood pressure monitoring, to bring results in on next visit - Goal of BP <140/90 - LOSARTAN 100 MG-HYDROCHLOROTHIAZIDE 12.5 MG TABLET 2. Stage 3b chronic kidney disease (HCC) - ICD9: 585.3, ICD10: N18.32 - eGFR: Stable 3. Hyperlipidemia, unspecified hyperlipidemia type - ICD9: 272.4, ICD10: E78.5 Stable Continue to monitor Follow up in 6 months Check labs annually Medical Decision Making: Problems: Moderate: 2+ stable chronic illnesses Data: Unique test result(s) reviewed: 3+ Risk: Moderate: Drug management Medical Decision Making Level: 4 - Moderate Shwetha Kumar MD documented in this encounter [facility] 01-15-2022 History of Presen t illness Narrative Images from the original note were not included. Subjective Came with complaints of right-sided back pain. Patient says she was sitting in her car for a long period of time. Patient says it feels like muscle pain. Patient says it only is when she is sitting in her car right now she does not have the pain. Patient says it is an 8 out of 10. Patient denies any history of back problems. Patient denies any numbness tingling or radiating. Patient denies any urinary symptoms. Patient denies any fevers nausea vomiting. Patient says its been about 3 days. The history is provided by the patient. Review of Systems Constitutional: Negative. Skin: Negative. Objective Physical Exam Constitutional: Appearance: Normal appearance. Pulmonary: Effort: Pulmonary effort is normal. Musculoskeletal: Arms: Comments: Patient's pain is located in the area marked above. Patient's pain is able to be recreated with palpation. Neurological: Mental Status: She is alert. PAST MEDICAL HISTORY Diagnosis Date Cataract right eye Glaucoma right eye PAST SURGICAL HISTORY Procedure Laterality Date CATARACT EXTRACTION HX Right 07/08/2017 [facility] ALLERGIES Ibuprofen and Lisinopril MEDICATIONS Losartan-hydroCHLOROthiazide (HYZAAR) 100-12.5 mg per tablet Take 1 tablet by mouth once daily. vit A,C,T-Netl-Afnwek (PRESERVISION AREDS) 7,160 unit- 113 mg-100 unit tab Take 2 tablets by mouth twice daily with meals. timolol hemihydrate (BETIMOL) 0.5 % ophthalmic solution Use 1 Drop in the right eye once daily. latanoprost (XALATAN) 0.005 % ophthalmic solution Use 1 Drop in the right eye once daily. TO AFFECTED EYE(S) LUTEIN/ZEAXANTHIN (OCUVITE LUTEIN 25 ORAL) Take by mouth. FOLIC ACID/MULTIVIT-MIN/LUTEIN (CENTRUM SILVER ORAL) Take by mouth. aspirin, enteric coated (ASPIRIN, ENTERIC COATED) 81 mg EC tablet Take 81 mg by mouth once daily. predniSONE (DELTASONE) 20 mg tablet Take 2 tablets by mouth once daily for 5 days. lidocaine (LIDODERM) 5 % Apply 1 Patch as directed once daily for 14 days. Remove old patch prior to placing new patch. Location: on for 12 hours and off for 12 hours. Right mid back. FAMILY HISTORY Problem Relation Age of Onset other (Other) Mother old age other (Other) Father old age Cataract Maternal Grandmother Glaucoma Maternal Grandmother Glaucoma Paternal Grandmother Cataract Paternal Grandmother Social History Tobacco Use Smoking status: Never Smokeless tobacco: Never Substance Use Topics Alcohol use: No Drug use: No ASSESSMENT/PLAN: 1. Acute midline low back pain without sciatica - ICD9: 724.2, ICD10: M54.50 Prednisone daily for 5 days and Lidoderm patches were prescribed. Patient was educated about proper use of medication and supportive therapies. Patient will ice rest and use Tylenol. Patient will follow-up if signs and symptoms do not seem to be getting better. Patient does not want an x-ray at this time due to no injury. Patient was okay with this care plan. Red flags were discussed and if any of them occur she will go to the ER. Jyothi Rodney APRN.MARCELLA documented in this encounter [facility] 01-15-2022 Instructions Jyothi Rodney APRN.GOVERNMENT GUARD - 01/15/2022 10:42 AM EDT - RICE therapy - see patient instructions for further recommendations. - F/U with PCP in 5-7 days or before if worse. - Discussed Red Flag signs and when to go to ER. - Reviewed plan of care and DC papers with patient. Verbalized understanding. documented in this encounter [facility] 07-21-2021 Miscellaneous Notes Patient notified of results, verbalizes understanding of instructions. Pt stated she will talk it over with PCP in September. Paola Reyes LPN Can you please call the patient and let her know that I reviewed her CT results. CT does show a calcified granuloma in that right lung but no suspicious nodules or malignancy were noted. Bilateral cysts were noted on the kidneys, this can be further evaluated with ultrasound per radiology recommendations. I looked in her record from a CT scan that she had in October and the cysts were noted as well. If she prefers I can order the ultrasound for further evaluation. Please let me know what she prefers to do. Thank you. Hugh Garrett APRN.MARCELLA documented in this encounter [facility] 07-18-2021 History of Presen t illness Narrative Radiology Service Progress Note PATIENT NAME: Melissa Jacobo DATE OF SERVICE: July 18, 2021 TIME: 4:23 PM PATIENT IDENTITY VERIFICATION COMPLETED USING TWO (2) IDENTIFIERS: Name and Date of confirmed by patient verbally. FALL SCREENING: Has the patient had 2 falls in the last year or 1 fall with injury or currently using an Ambulatory Assistive Device (Walker, Cane, Wheelchair, Crutches, etc.)? No PATIENT GENDER DATA: Female. status: : No status: NO. PATIENT RELEVANT IMPLANT DATA REVIEWED: Not Applicable RADIOLOGY DEPARTMENT: CT; Exam(s) Completed: Chest PERIPHERAL IV DATA: Not applicable SIGNED BY: RT Weston(R) July 18, 2021 4:23 PM documented in this encounter [facility] 06-30-2021 History of Presen t illness Narrative Radiology Service Progress Note PATIENT NAME: Melissa Jacobo DATE OF SERVICE: June 30, 2021 TIME: 2:03 PM PATIENT IDENTITY VERIFICATION COMPLETED USING TWO (2) IDENTIFIERS: Name and Date of confirmed by patient verbally. FALL SCREENING: Has the patient had 2 falls in the last year or 1 fall with injury or currently using an Ambulatory Assistive Device (Walker, Cane, Wheelchair, Crutches, etc.)? No PATIENT GENDER DATA: Female. status: : No status: NO. PATIENT RELEVANT IMPLANT DATA REVIEWED: Not Applicable RADIOLOGY DEPARTMENT: General X-ray: Exam(s) Completed: Spine X-Ray(s): Thoracic PERIPHERAL IV DATA: Not applicable SIGNED BY: RT Anna(R) June 30, 2021 2:03 PM documented in this encounter [facility] Evaluation note Diagnosis Lung nodules Other nonspecific abnormal finding of lung field Calcification of lung determined by X[facility]ray [facility] Diagnosis Acute midline low back pain without sciatica- Primary [facility] Diagnosis Hypertension, essential- Primary Unspecified essential hypertension Stage 3b chronic kidney disease (HCC) Hyperlipidemia, unspecified hyperlipidemia type [facility] Diagnosis Vertigo- Primary Dizziness and giddiness [facility] Diagnosis Hospital discharge follow-up- Primary Other follow-up examination BPPV (benign paroxysmal positional vertigo), unspecified laterality [facility] Diagnosis Hypertension, essential- Primary Unspecified essential hypertension Stage 3b chronic kidney disease (HCC) Hyperlipidemia, unspecified hyperlipidemia type [facility] Diagnosis Hypertension, essential- Primary Unspecified essential hypertension Stage 3b chronic kidney disease (HCC) Hyperlipidemia, unspecified hyperlipidemia type BPPV (benign paroxysmal positional vertigo), unspecified laterality documented in this encounter [facility] note* Diagnosis Upper back pain documented in this encounter [facility] for referral (narrative)* Diagnostic Procedure Only (Routine) - Closed Specialty Diagnoses / Procedures Referred By Contac t Referred To Contact XR IMAGING Diagnoses Upper back pain Procedures XR THORACIC GENERAL 3V AP/LAT/SWIMMERS RADEX SPINE THORACIC 3 VIEWS Hugh Garrett APRN.GOVERNMENT GUARD [address] [place] [address] [place] [address] Referral ID Status Reason Start Date Expiration Date V isits Requested Visits Authorized [id number] Closed Auto-Generate d Referral 06/30/2021 07/30/2022 1 1 [facility] for visit Narrative* Diagnostic Procedure Only (Routine) - Closed Specialty Diagnoses / Procedures Referred By Contac t Referred To Contact XR IMAGING Diagnoses Upper back pain Procedures XR THORACIC GENERAL 3V AP/LAT/SWIMMERS RADEX SPINE THORACIC 3 VIEWS Hugh Garrett APRN.GOVERNMENT GUARD [address] [place] [address] [place] [address] Referral ID Status Reason Start Date Expiration Date V isits Requested Visits Authorized [id number] Closed Auto-Generate d Referral 06/30/2021 07/30/2022 1 1 [facility] Reason for Referral Specialty Diagnoses / Procedures Referred By Contac t Referred To Contact CT IMAGING Diagnoses Lung nodules Calcification of lung determined by X-ray Procedures CT CHEST WO IVCON DIAGNOSTIC COMPUTED TOMOGRAPHY THORAX W/O CNTRST Hugh Garrett APRN.GOVERNMENT GUARD [address] [place] [address] Ct Imaging Referral ID Status Reason Start Date Expiration Date V isits Requested Visits Authorized [id number] Closed Auto-Generate d Referral 07/07/2021 08/06/2022 1 1 Summary Purpose Family History No Family History Records Found Advance Directives No Advanced Directives Records Found Additional Source Comments Source Comments (unrecognize d section and content) In the event this informatio n is protected by the Federal Confidentiality of Alcohol and Drug Abuse Patient Records regulations: The Federal rules restrict any use of the information to criminally investigate or prosecute any alcohol or drug abuse patient.[facility] the event this information is protected by the Federal Confidentiality of Alcohol and Drug Abuse Patient Records regulations: The Federal rules restrict any use of the information to criminally investigate or prosecute any alcohol or drug abuse patient.[facility] the event this information is protected by the Federal Confidentiality of Alcohol and Drug Abuse Patient Records regulations: The Federal rules restrict any use of the information to criminally investigate or prosecute any alcohol or drug abuse patient.[facility] the event this information is protected by the Federal Confidentiality of Alcohol and Drug Abuse Patient Records regulations: The Federal rules restrict any use of the information to criminally investigate or prosecute any alcohol or drug abuse patient.[facility] the event this information is protected by the Federal Confidentiality of Alcohol and Drug Abuse Patient Records regulations: The Federal rules restrict any use of the information to criminally investigate or prosecute any alcohol or drug abuse patient.[facility] the event this information is protected by the Federal Confidentiality of Alcohol and Drug Abuse Patient Records regulations: The Federal rules restrict any use of the information to criminally investigate or prosecute any alcohol or drug abuse patient.[facility] the event this information is protected by the Federal Confidentiality of Alcohol and Drug Abuse Patient Records regulations: The Federal rules restrict any use of the information to criminally investigate or prosecute any alcohol or drug abuse patient.[facility] the event this information is protected by the Federal Confidentiality of Alcohol and Drug Abuse Patient Records regulations: The Federal rules restrict any use of the information to criminally investigate or prosecute any alcohol or drug abuse patient.[facility] the event this information is protected by the Federal Confidentiality of Alcohol and Drug Abuse Patient Records regulations: The Federal rules restrict any use of the information to criminally investigate or prosecute any alcohol or drug abuse patient.[facility] Reason for Visit (unrecogniz ed section and content) Reason Comments Radiology CT Specialty Diagnoses / Procedures Referred By Contac t Referred To Contact CT IMAGING Diagnoses Lung nodules Calcification of lung determined by X-ray Procedures CT CHEST WO IVCON DIAGNOSTIC COMPUTED TOMOGRAPHY THORAX W/O CNTRST Hugh Garrett, NAYLA.GOVERNMENT GUARD [address] [place] [address] Ct Imaging Referral ID Status Reason Start Date Expiration Date V isits Requested Visits Authorized [id number] Closed Auto-Generate d Referral 07/07/2021 08/06/2022 1 1 Reason Comments Results Reason Comments right mid back pain X 3 days Reason Comments F/U 6 Month Reason Comments Dizziness Pt denied fall, ches t pain,ear pain, urinary sxs, c/o dizziness x1 wk. Reason Comments Follow Up ER follow up for camilla tigo Reason Comments 6 Month Exam Care Teams (unrecognized sec tion and content) Third Grade Teacher Relationship Specialty Start Date End Date Shwetha Kumar MD [address] [place] [address] PCP - General Family Practice 08/04/17 Third Grade Teacher Relationship Specialty Start Date End Date Shwetha Kumar MD [address] [place] [address] PCP - General Family Practice 08/04/17 Third Grade Teacher Relationship Specialty Start Date End Date Shwetha Kumar MD [address] [place] [address] PCP - General Family Medicine 08/04/17 Third Grade Teacher Relationship Specialty Start Date End Date Shwetha Kumar MD [address] [place] [address] PCP - General Family Medicine 08/04/17 Third Grade Teacher Relationship Specialty Start Date End Date Shwetha Kumar MD [address] [place] [address] PCP - General Family Medicine 08/04/17 Third Grade Teacher Relationship Specialty Start Date End Date Shwetha Kumar MD [address] [place] [address] PCP - General Family Medicine 08/04/17 Third Grade Teacher Relationship Specialty Start Date End Date Shwetha Kumar MD [address] [place] [address] PCP - General Family Medicine 08/04/17 Third Grade Teacher Relationship Specialty Start Date End Date Shwetha Kumar MD [address] [place] [address] PCP - General Family Medicine 08/04/17 INFORMATION SOURCE (unrecogn ized section and content) DATE CREATED AUTHOR 04/07/2023 [facility] FOR RECORDS PERTAINING TO PATIENTS WHO ARE OR HAVE BEEN ENROLLED IN A CHEMICAL DEPENDENCY/SUBSTANCEABUSE PROGRAM, SOME INFORMATION MAY BE OMITTED. This clinical summary was aggregated from multiple sources. Caution should be exercised in using it in the provision of clinical care. This summary normalizes information from multiple sources, and as a consequence, information in this document may materially change the coding, format and clinical context of patient data. In addition, data may be omitted in some cases. CLINICAL DECISIONS SHOULD BE BASED ON THE PRIMARY CLINICAL RECORDS. [facility]. provides no warranty or guarantee of the accuracy or completeness of information in this document.
[2024-02-12 09:42] LABS: Absolute Lymphocyte Count 0.97 X10^3/uL (0.83-4.51); Absolute Neutrophil Count 7.4 X10^3/uL (2.0-7.7); Basophil# 0.06 X10^3/uL; Basophil% 0.6 % (0-1); Eosinophil# 0.26 X10^3/uL; Eosinophils% 2.7 % (0-5); Hematocrit 36.6 % (37-47); Hemoglobin 12.1 g/dL (12.0-15.0); Lymphocyte # 0.97 X10^3/ul (0.83-4.51); Lymphocyte % 9.9 % (19-41); Mean Corp Hgb Conc 33.1 g/dL (32-36); Mean Corpuscular Hgb 30.8 pg (27.0-32.0); Mean Corpuscular Volume 93.1 fL (81-99); Mean Platelet Vol. 9.4 fl (6.2-12.0); Monocyte# 1.06 X10^3/uL; Monocyte% 10.8 % (0-10); NRBC Flagged by Analyzer 0 % (0-5); Neutrophil # 7.42 X10^3/uL (2.7-7.7); Neutrophil % 75.7 % (47-70); Platelet Count 347 K/mm3 (150-450); RBC Distribution Width CV 12.1 % (11.6-14.6); RBC Distribution Width SD 41.9 fl (35.1-43.9); Red Blood Count 3.93 M/mm3 (4.2-5.4); White Blood Count 9.8 K/mm3 (4.4-11.0)
[2024-02-12 10:05] LABS: Anion Gap 4 (5-15); BUN 27 mg/dL (7-18); BUN/Creat Ratio 21.1 RATIO (10-20); Calcium,Total 9.6 mg/dL (8.5-10.1); Chloride 102 mmol/L (98-107); Creatinine, Serum 1.28 mg/dL (0.55-1.02); EST Glomerular Filtration Rate 42 mL/min (>60); Est Glom Filt Rate - Afr Amer 51 mL/min (>60); Estimated Creatinine Clearance 25.41 ml/min; Glucose 115 mg/dL (74-106); Potassium 4.3 mmol/L (3.5-5.1); Sodium Level 133 mmol/L (136-145)
[2024-02-12 10:19] LABS: Mucous, Urine 0 SEEN /hpf (<or=2+); Red Blood Cells-Urine 0 SEEN /hpf (0-5)
[2024-02-12 10:22] LABS: Color, Urine Yellow (Yellow); Glucose, Dipstick Normal (Normal); Ketone-Dipstick Negative (Negative); Leukocyte Esterase-Dipstick Negative /ul (Negative); Nitrite-Dipstick Negative (Negative); Occult Blood-Urine Negative /ul (Negative); Protein-Dipstick Negative (Negative); Urine Bilirubin Dipstick Negative (Negative); Urine Clarity Clear (Clear); Urine Urobilinogen Normal (Normal); Urine pH 6.5 (5.0 - 8.0)
[2024-02-12 10:30] LABS: Bacteria 1+ /hpf (None Seen); Squamous Epithelial Cells - UA 0-5 SEEN /hpf (5-10); White Blood Cells 0-5 SEEN /hpf (0-5)
[2024-02-12 11:35] VITALS: BP 127/88; PULSE 81; RESP 16; TEMP 36.2; O2SAT 97
[2024-02-12 13:22] VITALS: BP 161/77; PULSE 81; RESP 18; TEMP 36.8; O2SAT 97
== END 2024-02-12 14:04 | disposition home or self-care (01) ==
PROVIDERS: Emergency Provider Emergency Medicine; PCP Family Medicine; Visit Provider Emergency Medicine
DX: R10.9 Unspecified abdominal pain (principal); N13.2 Hydronephrosis with renal and ureteral calculous obstruction; I10 Essential (primary) hypertension; Z79.82 Long term (current) use of aspirin; Z79.899 Other long term (current) drug therapy
CPT/HCPCS: 74176; 80048; 81001; 85025; 99282; A4216

== ENCOUNTER → 2024-03-27 | Outpatient (CLI) | payer MEDICARE, OTHER, SELFPAY ==
--- NOTE | 2024-03-27 10:24 | NM_ITS ---
CLINICAL: 83-year-old female with history of apparent nephrolithiasis and right kidney hydronephrosis. 99m Tc MAG3 DIURETIC RENAL SCINTIGRAPHY COMPARISON: CT of the abdomen-pelvis report 02/12/2024 FINDINGS: Following the intravenous administration of 11.5 mCi of 99m Tc MAG3, renal images reveal: 1. The flow study demonstrates relatively symmetric and age-appropriate arterial phase distribution of the radiopharmaceutical to the bilateral kidneys. 2. Immediate static delayed nephrogram images depict relatively prompt and homogeneous tracer concentration by the renal parenchyma of the right renal unit and decreased in the left kidney relative to the right. The left kidney is smaller than right. Collecting structure visualization is defined at approximately 1 minute post tracer injection in the right kidney and 2 minutes following radiopharmaceutical administration to the left kidney. Washout of the radiopharmaceutical by the renal parenchyma appears qualitatively delayed bilaterally. Persistent collecting system activity is noted in the bilateral kidneys prior to Lasix administration. 3. The lxhbl-do-rcdg ratio of total renal parenchymal function was calculated to be 58/42. Furosemide 20 mg was administered intravenously. The post Lasix T ? washout of the left kidney collecting system was calculated to be < 10 minutes and approximately 16.7 minutes regarding the right kidney collecting system activity, (normal < 10 minutes). NM/Renal Scan w/ Pharm Intervent IMPRESSION: 1. There is scintigraphic evidence of bilateral renal parenchymal-cortical dysfunction expressed and delayed washout of the radiopharmaceutical by the renal parenchyma bilaterally. 2. A normal physiologic response is demonstrated in the left kidney collecting system negating the presence of significant mechanical and/or functional obstruction. An indeterminate response (T ? > 10 and < 20 minutes) is defined in the right kidney collecting system. Electronically Signed: Marlon Li DO at 9:44 EST ,
== END | disposition home or self-care (01) ==
LOC: NM 10:23
PROVIDERS: PCP Family Medicine; Referring Provider Urology; Visit Provider Urology
DX: Q62.11 Congenital occlusion of ureteropelvic junction (principal)
CPT/HCPCS: 78708; A9562; J1940

== ENCOUNTER 2025-01-08 09:49 | Emergency (ER) | payer MEDICARE, OTHER, SELFPAY ==
[2025-01-08 09:49] VITALS: BP 169/85; PULSE 78; RESP 16; TEMP 36.1; O2SAT 99; BMI 25.4
--- NOTE | 2025-01-08 10:07 | EKG12_ITS ---
Test Reason : SYNCOPE Blood Pressure : */* mmHG Vent. Rate : 73 BPM Atrial Rate : 73 BPM P-R Int : 184 ms QRS Dur : 112 ms QT Int : 386 ms P-R-T Axes : 52 20 5 degrees QTcB Int : 425 ms Normal sinus rhythm Low voltage QRS Right bundle branch block Abnormal ECG Confirmed by JOSSELINE REDDY, AILYN ([id number]), supervising editor news reel JAVI CURIEL ([id number]) on 01/09/2025 7:27:09 AM Referred By: TB Confirmed By: AILYN MANJARREZ MD
[2025-01-08 10:24] LABS: Hematocrit 35.5 % (37-47); Hemoglobin 11.8 g/dL (12.0-15.0); Immature Granulocytes Count 0.010 X10^3/uL (0.0-0.0); Mean Corp Hgb Conc 33.2 g/dL (32-36); Mean Corpuscular Volume 92.7 fL (81-99); Mean Platelet Vol. 8.8 fl (6.2-12.0); NRBC Flagged by Analyzer 0 % (0-5); Platelet Count 345 K/mm3 (150-450); RBC Distribution Width CV 12.2 % (11.6-14.6); RBC Distribution Width SD 41.6 fl (35.1-43.9); Red Blood Count 3.83 M/mm3 (4.2-5.4); White Blood Count 7.6 K/mm3 (4.4-11.0)
[2025-01-08 10:49] VITALS: BP 166/91; PULSE 78
[2025-01-08 11:00] VITALS: BP 161/74; PULSE 69; RESP 19
[2025-01-08 11:09] LABS: AST(SGOT) 25 U/L (<=31); Alanine Aminotransfer ALT/SGPT 14 U/L (<=34); Albumin, Serum 4.0 g/dL (3.4-4.8); Alkaline Phosphatase 88 U/L (35-104); Anion Gap 11 (5-15); BUN 18 mg/dL (4-19); BUN/Creat Ratio 16.2 RATIO (10-20); Calcium,Total 9.6 mg/dL (7.6-11.0); Carbon Dioxide 24.0 mmol/L (21.0-32.0); Chloride 96 mmol/L (98-108); Estimated Creatinine Clearance 32.31 ml/min (50-250); Globulin 2.7 g/dL (2.2-4.2); Glucose 113 mg/dL (70-99); Potassium 4.9 mmol/L (3.3-5.1)
[2025-01-08 11:49] VITALS: O2SAT 100
--- NOTE | 2025-01-08 11:56 | EDS_ITS ---
HPI History of Present Illness Chief Complaint: Syncope Narrative Narrative: Patient is a 84-year-old female with past medical history of hypertension, glaucoma who presents to the emergency department after being evaluated urgent care and was advised to come to the emergency department. Patient notes that last week she had passed out and states that she did hit her head but denies any blood thinner medications. She states that here in the emergency department she has no complaints and feels well she has not had any nausea or vomiting since the fall she has been eating and drinking appropriately. She states that today she told urgent care at what happened and they immediately told her to come to the emergency department to be evaluated and they noted that her blood pressure was elevated as well. Patient states that she is on a low-dose blood pressure medication and has a appointment with her primary care physician on . Patient notes that her blood pressure has been little high today. She states that otherwise she feels fine and has no complaints [facility] Medical History Glaucoma Hypertension Home Medications ?Medication ?Instructions ?Recorded ?Last Taken ?Type aspirin 81 mg tablet,delayed 81 mg PO DAILY 01/30/18 0 01/08/25 History release losartan 100 1 tab PO DAILY 10/07/2012/19 History mg-hydrochlorothiazide 12.5 mg tablet lutein 20 mg capsule 20 mg PO DAILY 10/07/2012/19 History brimonidine 0.2 % eye drops 1 drp ophthalmic (eye) BID 01/08/25 01/08/25 History latanoprost 0.005 % eye drops 1 drp RIGHT EYE QHS 12/1901/07/25 History yjjecyiuhhwt-azvanjch-btquyb 1 tab PO DAILY 01/08/25 0 01/08/25 History tablet (A Thru Z High Potency tablet) timolol maleate 0.5 % eye gel 1 drp ophthalmic (eye) D AILY 01/08/25 01/08/25 History forming solution vitamins A,C,X-evxy-oyqsme 2,148 2 tab PO BID 01/08/25 01/08/25 History mcg-113 mg-45 mg-17.4 mg tablet (Eye Multivitamin) Allergy/AdvReac Type Severity Reaction Status Date / Time ibuprofen Allergy Intermediate Itching Verified 01/08/25 11:19 Social History Smoking Status: Never smoker substance use type: does not use ROS ROS ED ROS Narrative Constitutional: Denies any fevers, chills, headaches, lightness, dizziness Eyes: Denies double vision Cardiovascular: Denies chest pain Respiratory: Denies coughing wheezing shortness of breath Abdomen: Denies abdominal pain nausea vomit diarrhea : Denies any urinary symptoms Neurological: Denies any numbness, weakness, tingling Musculoskeletal: Denies back pain Skin: Denies any rashes or lesions EXAM Physical Exam Narrative Exam Narrative: General: Patient was lying in bed rest comfortably did not appear to any acute distress Head: Atraumatic, normocephalic Eyes: PERRL bilaterally, EOMI bilaterally, no conjunctival injection noted Neck: Soft, supple, trachea midline Cardiovascular: Regular rate and rhythm no murmurs gallops rubs are noted Respiratory: Clear to auscultation bilaterally Abdomen: Soft, nondistended, no tenderness to palpation Extremities: +5/5 strength noted in the bilateral upper and lower extremities, radial pulses +2/4 and about extremities, no pedal edema on exam Neurological: Patient following commands knew that she was at [facility] year is 2024. NIH of 0 GCS 15 Skin: Warm, dry, intact no rashes or lesions noted Const Vital Signs: 01/08/25 09:49 01/08/25 10:11 01/08/25 10:11 Temperature 96.9 F L Temperature Source Temporal Pulse Rate 78 Respiratory Rate 16 Respiratory Effort Normal Respiratory Pattern Normal Blood Pressure 169/85 H Blood Pressure Mean 113 Pulse Ox 99 Oxygen Delivery Method Room Air Room Air 01/08/25 10:49 01/08/25 11:00 Temperature Temperature Source Pulse Rate 78 69 Respiratory Rate 19 H Respiratory Effort Respiratory Pattern Blood Pressure 166/91 H 161/74 H Blood Pressure Mean 116 103 Pulse Ox Oxygen Delivery Method MDM MDM MDM Narrative Medical decision making narrative: Patient is a 84-year-old female who presents to the emergency department with a chief complaint of needing evaluation cording to urgent care after being evaluated by them. On the differential diagnose includes but not limited to hypertension, hypertensive emergency, cardiac arrhythmia, electrolyte abnormality. Once workup is obtained reviewed she will be reevaluated. Patient CBC reviewed which showed a white blood count of 7.6, hemoglobin 11.8, plate count was 345. Patient sodium is 130, potassium normal at 4.9, creatinine normal at 1.09. Patient's AST and ALT were 25 and 14 respectively total bi lirubin normal at 0.97. Patient's EKG was reviewed which showed sinus rhythm with a rate of 73 bpm WA interval of 184 evidence of right bundle branch block. This is compared to EKG from August 01, 2009. At this point time EKG showed sinus rhythm with a rate of 79 bpm WA interval 164 with evidence of right bundle branch block at that point time as well. Patient ambulated well here in the emergency department once again she is completely asymptomatic and wants to go home at this point time. Patient was advised to keep blood pressure log by randomly taking her blood pressure 2-3 times a day write this down and take it to her appointment on . She was advised to return with worsening symptoms or any concerns. She is agreeable this plan all question concerns answered she was discharged home in stable condition. Lab Data Labs: Laboratory Results - last 24 hr 01/08/25 10:08 WBC 7.6 RBC 3.83 L Hgb 11.8 L Hct 35.5 L MCV 92.7 MCH 30.8 MCHC 33.2 RDW Std Deviation 41.6 RDW Coeff of Aracely 12.2 Plt Count 345 MPV 8.8 Immature Gran % (Auto) 0.100 Neut % (Auto) 64.5 Lymph % (Auto) 18.8 L Iroquois % (Auto) 12.3 H Eos % (Auto) 3.2 Baso % (Auto) 1.1 H Absolute Neuts (auto) 4.9 Absolute Lymphs (auto) 1.42 Nucleated RBC % 0 Sodium 130 L Potassium 4.9 Chloride 96 L Carbon Dioxide 24.0 Anion Gap 11 BUN 18 Creatinine 1.09 Estim Creat Clear Calc 32.31 L Est GFR (MDRD) Non-Af 49 L BUN/Creatinine Ratio 16.2 Glucose 113 H Calcium 9.6 Total Bilirubin 0.97 AST 25 ALT 14 Alkaline Phosphatase 88 Total Protein 6.8 Albumin 4.0 Globulin 2.7 Albumin/Globulin Ratio 1.5 Discharge Plan Triage Chief Complaint: Syncope ED Provider: Johnson Paul Dx/Rx/DC Orders Clinical Impression: Hypertension, History of glaucoma Prescriptions: No Action aspirin 81 MG tablet,delayed release (DR/EC) 81 mg PO DAILY lutein 20 mg Capsule 20 mg PO DAILY losartan-hydrochlorothiazide 100-12.5 mg Tablet 1 tab PO DAILY brimonidine 0.2 % drops 1 drp ophthalmic (eye) BID timolol maleate 0.5 % gel forming solution 1 drp ophthalmic (eye) DAILY latanoprost 0.005 % drops 1 drp RIGHT EYE QHS Eye Multivitamin 2,148 mcg-113 mg-45 mg-17.4mg tablet 2 tab PO BID Rx Instructions: administer with AM and PM meals A Thru Z High Potency Tablet 1 tab PO DAILY Primary Care Provider: Anna Cueva Referrals: Anna Cueva MD [Primary Care Provider, Family Practice] Activity Restrictions/Additional Instructions: Your blood work did not show acute findings here today. Randomly take your blood pressure 2-3 times a day write this down on a piece paper take it to your appointment on to show your doctor to see if they need to make any medication adjustments for your blood pressure. Return with worsening symptoms or concerns. Print Language: Khmer Disposition Disposition: Home, Self Care
[2025-01-08 12:42] VITALS: BP 148/84; PULSE 71; RESP 20; TEMP 36.1; O2SAT 100
== END 2025-01-08 12:42 | disposition home or self-care (01) ==
PROVIDERS: Emergency Provider Emergency Medicine; PCP Pediatrics; Visit Provider Emergency Medicine
DX: I10 Essential (primary) hypertension (principal); R55 Syncope and collapse; I45.10 Unspecified right bundle-branch block; Z79.82 Long term (current) use of aspirin; Z79.899 Other long term (current) drug therapy; Z86.69 Personal history of other diseases of the nervous system and sense organs
CPT/HCPCS: 80053; 85025; 93005; 99283; A4216